=== PATIENT | male | born 1940 | race Caucasian/White ===

== ENCOUNTER 2017-12-13 05:32 | Inpatient (IN) | payer OTHER ==
[2017-12-13] MEDS ORDERED: morphINE PF 0.2 MG in SYRINGE INTRATHECAL 1 SYR IT ONE (06:00)
[2017-12-13] MEDS ORDERED: fentaNYL 50 MCG in SYRINGE INTRATHECAL 1 SYR IT ONE (06:00)
[2017-12-13] MEDS ORDERED: TRANEXAMIC ACID 1,000 MG in NS 100 ML IV ONE (06:00)
[2017-12-13] MEDS ORDERED: GABAPENTIN 300 MG CAP PO ONE (06:02)
[2017-12-13] MEDS ORDERED: ACETAMINOPHEN 500 MG TAB PO ONE (06:02)
[2017-12-13] MEDS ORDERED: ceFAZolin 2 GM/DEXTROSE 100 ML IV ONE (06:02)
[2017-12-13] MEDS ORDERED: LR 1,000 ML IV ONE (06:03)
[2017-12-13] MEDS ORDERED: LIDOCAINE 1% 2 ML INJ ID PRN (06:03)
[2017-12-13] MEDS ORDERED: THROMBIN (BOVINE) 5,000 UNIT VIAL TP ONE (06:50)
[2017-12-13] MEDS ORDERED: BUPIVACAINE 0.25% 30 ML SDV ONE (06:50)
[2017-12-13] MEDS ORDERED: CHLORHEXIDINE GLUC HIBICLENS 118 ML BTL TP ONE (06:50)
[2017-12-13] MEDS ORDERED: BACITRACIN 50,000 UNITS/10 ML SYR IRR ONE ×3 (06:51→12:54)
[2017-12-13] MEDS ORDERED: CITRATE DEXTROSE SOLN 500 ML BAG ONE ×3 (06:51→14:04)
[2017-12-13] MEDS ORDERED: EPINEPHrine 1 MG/ML INJ ONE (06:51)
--- NOTE | 2017-12-13 06:51 | PDHPUP ---
History & Physical Update H&P update statement: This history and physical update is based on an assessment of the patient which was completed after admission or registration (within 24 hours), but prior to the surgery/procedure. H&P update: no change in patient's condition since H&P completed
--- NOTE | 2017-12-13 07:04 | PDANEPAE ---
ANE History of Present Illness Patient presents for extensive back fusion ANE Past Medical History - Cardiovascular History Hx Hypertension: Yes Hx Arrhythmias: No Hx Chest Pain: No Hx Coronary Artery / Peripheral Vascular Disease: Yes Hx CHF / Valvular Disease: No Hx Palpitations: No Cardiovascular History Comment: CAD 3 stents placed 2002,recheck 2007 - Pulmonary History Hx COPD: No Hx Asthma/Reactive Airway Disease: No Hx Recent Upper Respiratory Infection: No Hx Oxygen in Use at Home: No Hx Sleep Apnea: Yes Sleep Apnea Screening Result - Last Documented: Positive - Neurologic History Hx Cerebrovascular Accident: No Hx Seizures: No Hx Dementia: No - Endocrine History Hx Diabetes: No - Renal History Hx Renal Disorders: No - Liver History Hx Hepatic Disorders: No - Neurological & Psychiatric Hx Hx Neurological and Psychiatric Disorders: Yes Neurological / Psychiatric History Comment: depression - Cancer History Hx Cancer: No - Congenital Disorder History Hx Congenital Disorders: Yes Congenital History Comment: heart disease. strokes - GI History Hx Gastrointestinal Disorders: No - Other Health History Other Health History: Hx DVT'S and PE's - Chronic Pain History Chronic Pain: No - Surgical History Prior Surgeries: 2016 lumbar fusion at [facility]. 2014 discectomy at [facility]. 2014 laminectomy post fusion [facility] ANE Review of Systems Review of Systems: - Exercise capacity METS (RN): 4 METS ANE Patient History - Allergies Allergies/Adverse Reactions: oxycodone Allergy (Verified 11/29/17 11:35) Other-Enter Comments - Home Medications Home medications: home medication list seen and reviewed Home Medications: Alendronate Sodium [Fosamax 70 MG (*)] 70 mg PO TH@0700 11/23/17 [Last Taken ] Calcium Carb W/Vit D [Calcium Carb W/Vit D 500/200 (*)] 3 each PO DAILY [Last Taken 12/06/17] Cholecalciferol Vit D3 [Vitamin D3 2000 units tab (OTC)] 4,000 units PO HS 11/23 [Last Taken 12/06/17] Cyanocobalamin [Vitamin B12 (*)] 1,000 mcg PO BID 11/23/17 [Last Taken 12/06/17] Cyclobenzaprine [Flexeril 10 MG (*)] 10 mg PO HS 11/23/17 [Last Taken 12/12/17 21:30] Docusate Sodium [Colace 100 MG (*)] 100 mg PO BID 11/23/17 [Last Taken 12/11/17] Ezetimibe/Simvastatin [Vytorin 10-20 mg Tablet] 1 each PO HS 11/23/17 [Last Taken 12/12/17 17:30] Finasteride [Proscar 5 MG (*)] 5 mg PO HS 11/23/17 [Last Taken 12/12/17 21:30] Folic Acid [Folic Acid 1 MG (*)] 1 mg PO DAILY 11/23/17 [Last Taken 12/06/17] Herbals/Supplements -Info Only 1 ea PO DAILY 11/23/17 [Last Taken 12/06/17] Magnesium Oxide [Magnesium Oxide 400 mg (*)] 400 mg PO HS 11/23/17 [Last Taken 12/06/17] Pyridoxine HCl [Vitamin B-6 100 mg (*)] 100 mg PO DAILY 11/23/17 [Last Taken ] Sennosides/Docusate Sodium [Senna-S Tablet] 1 each PO BID 11/23/17 [Last Taken 12/11/17] Tamsulosin HCl [Flomax 0.4 MG (*)] 0.4 mg PO HS 11/23/17 [Last Taken 12/12/17 21 :30] Terazosin HCl [Hytrin 5 MG (*)] 5 mg PO HS 11/23/17 [Last Taken 12/12/17 17:30] amLODIPine BESYLATE [Norvasc 5 mg (*)] 5 mg PO HS 11/23/17 [Last Taken 12/12/17 17:30] traMADol [Ultram 50 mg (*)] 50 mg PO HS PRN 11/23/17 [Last Taken 11/16/17] Aspirin [Aspirin 81mg (*)] 81 mg PO HS 11/25/17 [Last Taken 12/06/17] Multivitamins [Multivitamin (*)] 1 each PO HS 11/25/17 [Last Taken 12/06/17] Frost-3 Fatty Acids [Fish Oil 1000 mg (*)] 1,000 mg PO BID 11/25/17 [Last Taken 12/06/17] Sertraline HCl [Zoloft 100mg (*)] 100 mg PO HS 11/25/17 [Last Taken 12/12/17 17: 30] - NPO status NPO Status: no food or drink >8 hours NPO Since - Liquids (Date): 12/13/17 NPO Since - Liquids (Time): 04:30 NPO Since - Solids (Date): 12/12/17 NPO Since - Solids (Time): 21:30 - Smoking Hx Smoking Status: Former smoker - Family Anes Hx Family Hx Anesthesia Complications: none ANE Labs/Vital Signs - Vital Signs Height: 187.96 cm Weight: 88.904 kg ANE Physical Exam - Airway Neck exam: decreased ROM Mallampati Score: Class 2 Mouth exam: small mouth opening - Pulmonary Pulmonary: no respiratory distress - Cardiovascular Cardiovascular: regular rate and rhythym - ASA Status ASA Status: III ANE Anesthesia Plan Anesthesia Plan: general endotracheal anesthesia Lines/Monitors: arterial line Specialized Airway: video laryngoscope (RBA discussed, consented for blood as necessary)
[2017-12-13] MEDS ORDERED: PROPOFOL 200 MG/20 ML VIAL ONE (07:09)
[2017-12-13] MEDS ORDERED: REMIFENTANIL HCL 1 MG VIAL ONE ×2 (07:09)
[2017-12-13] MEDS ORDERED: fentaNYL 100 MCG/2 ML INJ ONE ×2 (07:09→14:09)
[2017-12-13] MEDS ORDERED: PROPOFOL/EMULSION 500 MG/50 ML BOTTLE IV ONE ×3 (07:10→11:34)
[2017-12-13] MEDS ORDERED: LIDOCAINE 2% 2 ML INJ ONE (07:19)
[2017-12-13] MEDS ORDERED: ROCURONIUM 50 MG/5 ML VIAL ONE (07:19)
[2017-12-13] MEDS ORDERED: SUCCINYLCHOLINE CHLORIDE 200 MG/10 ML SYR IVP ONE (07:37)
[2017-12-13] MEDS ORDERED: ATROPINE SULFATE 1 MG/ML VIAL ONE (07:43)
[2017-12-13] MEDS ORDERED: DEXAMETHASONE 4 MG/ML VIAL ONE (08:09)
[2017-12-13] MEDS ORDERED: ONDANSETRON 4 MG/2 ML VIAL ONE (08:09)
[2017-12-13] MEDS ORDERED: GLYCOPYRROLATE 0.2 MG/1 ML VIAL ONE ×2 (08:22→09:44)
[2017-12-13] MEDS ORDERED: ePHEDrine SULFATE 25 MG/5 ML SYR ONE (09:45)
[2017-12-13] MEDS ORDERED: ceFAZolin 1 GM VIAL ONE ×2 (10:53→14:11)
[2017-12-13] MEDS ORDERED: *INTRAOP 1000MG*TRANEX ACID/NS 100 ML IV ONE (11:30)
[2017-12-13] MEDS ORDERED: HYDROmorphONE/DILAUDID 2 MG/ML INJ ONE (13:41)
[2017-12-13] MEDS ORDERED: morphINE PF 5 MG/10 ML INJ ONE (14:09)
[2017-12-13] MEDS ORDERED: HYDROmorphONE/DILAUDID 1 MG/ML INJ IVP PRN (14:35)
[2017-12-13] MEDS ORDERED: HYDROCODONE/APAP 5/325 TAB PO PRN (14:35)
[2017-12-13] MEDS ORDERED: ONDANSETRON 4 MG/2 ML VIAL IVP PRN ×2 (14:35→15:02)
[2017-12-13] MEDS ORDERED: LR 500 ML IV PRN (14:35)
[2017-12-13] MEDS ORDERED: fentaNYL 100 MCG/2 ML INJ IVP PRN (14:35)
[2017-12-13] MEDS ORDERED: NALOXONE HCL 0.4 MG/ML INJ IVP PRN (14:35)
--- NOTE | 2017-12-13 15:01 | POSTOPPROG ---
Post Op Note Date of Operation: 12/13/17 Surgeon: Primitivo Ellis Multiple Drum Sander Helper: Bhanu Alvarado PAC Anesthesiologist: Reji Dunham Anesthesia: GET(General Endotracheal) Pre-op Diagnosis: lumbar DJD, adjacent level degeneration, loose hardware Post-op Diagnosis: Same Indication: back pain, bilateral leg weakness Procedure: L3-S1 hardware removal, L2/3,3/4 TLIF, L1-S1 instrumentation Inf/Abcess present in the surg proc area at time of surgery?: No EBL: 500-1000 Complications: none Drains: Jered Gómez (to bulb suction) Specimen(s): hardware swabbed for staph
[2017-12-13] MEDS ORDERED: LACTULOSE 20 GM/30 ML UDCUP PO PRN (15:02)
[2017-12-13] MEDS ORDERED: ONDANSETRON DISINTEGRATING 4 MG TAB PO PRN (15:02)
[2017-12-13] MEDS ORDERED: MAGNESIUM HYDROXIDE 30 ML UDCUP PO PRN (15:02)
[2017-12-13] MEDS ORDERED: diphenhydrAMINE 25 MG CAP PO PRN (15:02)
--- NOTE | 2017-12-13 15:15 | SOAPPROG ---
SOAP Progress Note Assessment/Plan: Assessment: POST OP CHECK: doing well after L1-S1 fusion with L2/3,3/4 TLIF and L3-s1 hardware removal Plan: CPM in PACU, JULIO to bulb suction Transfer to floor per protocol 12/13/17 15:13 Subjective: awake, comfortable, conversant pain controlled Objective: Vital Signs Temp Pulse Resp BP Pulse Ox 36.5 C 60 16 150/82 H 95 12/13/17 07:11 12/13/17 07:11 12/13/17 07:11 12/13/17 07:11 12/13/17 07:11 Microbiology 12/13/17 08:53 Gram Stain - Final Other - Anaerobic Tube/Swab Vitals; BP: 142/71 Hr: 86 O2: 98% facemask Neuro GREENE to command , sens +LT throughout ICD10 Worksheet Patient Problems: Problems Problem Status Onset Degenerative lumbar spinal stenosis Acute Degenerative lumbar spinal stenosis Acute Lumbar canal stenosis Acute - ICD10 Problem Qualifiers (1) Lumbar canal stenosis (2) Degenerative lumbar spinal stenosis (3) Degenerative lumbar spinal stenosis
--- NOTE | 2017-12-13 15:22 | POSTANESTH ---
Post Anesthetic Evaluation Cardiovascular Status: Similar to Pre-Op Cond Respiratory Status: Similar to Pre-op Cond. Level of Consciousness/Mental Status: Mildly Sleepy, Arousable Pain Control: Adequate, Prn Tx Ordered Nausea/Vomiting Control: Adequate, Prn Tx Ordered Complications Possibly Related to Anesthesia: None Noted
--- NOTE | 2017-12-13 16:21 | GOP ---
[f rep st] OPERATIVE REPORT DATE OF OPERATION: 12/13/2017 SURGEON: Primitivo Ellis MD NEUROSURGEON: Primitivo Ellis MD. GEOTHERMAL POWERPLANT MECHANIC: CAMELIA Starks ANESTHESIA: General endotracheal. PREOPERATIVE DIAGNOSIS: Critical L2-3 spinal stenosis and progressive lower extremity weakness, seco ndary to adjacent level degeneration, status post prior L3-S1 decompression and stabilization with in strumentation. Hardware failure with loosening of screws. 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 Intractab le back pain and bilateral lower extremity radicular and neurogenic claudication symptoms. Failed co nservative care. POSTOPERATIVE DIAGNOSIS: Critical L2-3 spinal stenosis and progressive lower extremity weakness, sec ondary to adjacent level degeneration, status post prior L3-S1 decompression and stabilization with i nstrumentation. Hardware failure with loosening of screws. 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 Intracta ble back pain and bilateral lower extremity radicular and neurogenic claudication symptoms. Failed c onservative care. PROCEDURE PERFORMED: Removal of posterior segmental (pedicle screw) fixation from L3-S1, with explor ation of spinal fusion and identification of the L3-4 nonunion/pseudoarthrosis. Bilateral transpedic ular decompression at the L2-3 level with a redo posterior hemilaminectomy and foraminotomy bilateral ly at the L3-4 level. L1-S1 posterior segmental (pedicle screw and axle device) fixation and postero lateral fusion with local autograft, bone morphogenic protein, and morselized allograft. L2-3 and L3 -4 posterior/transforaminal lumbar interbody fusion with 2 structural PEEK interbody spacers, local a utograft and bone morphogenic protein. Repair of cerebrospinal fluid leak requiring extension of the laminectomy defect. Use of intraoperative microscopy, fluoroscopy, and computer volumetric stereota ctic navigation with intraoperative neurophysiologic testing. Injection of intrathecal narcotic anal gesics and subcutaneous and intramuscular local anesthesia for postoperative pain control. FINDINGS: ESTIMATED BLOOD LOSS: 900 cc. INDICATIONS: The patient is a 77-year-old man with intractable low back pain and bilateral lower ext remity radicular and neurogenic claudication symptoms. He has had progressive weakness in his lower extremities to the point of needing a walker to get around. He has critical stenosis at the L2, 3 le joshua after a prior L3 to S1 fusion with instrumentation with clearly loosened and a possible nonunion. The patient presents now for surgical decompression and stabilization, removal and replacement of h ardware, and exploration of spinal fusion. DESCRIPTION OF PROCEDURE: After informed consent was obtained, the patient was taken to the operatin g room and placed in a prone position on the Jered table. The thoracolumbosacral areas were preppe d and draped in a sterile fashion. After fluoroscopic localization of the correct levels, the subcut aneous and intramuscular tissues were infiltrated with local anesthesia. A midline linear incision was then created from approximately L1 through S1. This was carried down t o the fascial layer, which was incised using monopolar electrocautery, and carried in the subfascial plane along the spinous processes and lamina bilaterally. Intraoperative fluoroscopy was again used to verify the correct levels. Following this, the dissection was carried out over the over the facet joints. The prior hardware wa s then carefully removed in the standard fashion. The L3 screws bilaterally were extremely loose and when they came out, there did appear to be a very slight amount of clear fluid welling up in the dave or pedicle screw hole at the L3 level. This was examined very closely and a redo posterior hemilamin ectomy was performed bilaterally at L3-4 with a new L2-3 far lateral transpedicular decompression und er high-power microscopy. A small hole in the dura was noted along the inside of the left L3 pedicle screw, which appeared to be from erosion. Noted preoperatively, there is significant cortical breac h in a lot of the screws, especially L5, and after removing all of the screws and inspecting everythi ng, the only dural defect was medial to the L3 pedicle screw on the left. The microscope was then brought in and a meticulous dissection ensued at L2-3 and L3-4 with bilateral transpedicular decompressions. The facet joints were completely and unroofed at the L2 level and an extensive amount of scar tissue was encountered, but very carefully dissected out. There was very c ritical stenosis that was thoroughly decompressed throughout the L2 and L3 foramen and the central ca nal. Following this, the Secerno neuronavigational system was worried and pedicle screws were placed at L1 and L2 bilaterally, as well as L4 and S1 bilaterally. Each individual screw was tested neurophysiol ogically with monopolar electrostimulation and interpretation of the potentials by the surgeon. I di d not feel that it was in the best interest of the patient to place screws at L5 given the significan t cortical breach. I tried placing larger screws at L3, but the holes were to big screws eroding int o the bone. Short rods were then placed spanning the L2-L4 levels and a slight amount of distraction was created across the L2-3 and L3-4 interspaces. The L3-4 level had a definite pseudoarthrosis, so that complet e diskectomies were performed at L2-3 and L3-4 with preparation of the endplates and placement of 2 s tructural PEEK interbody spacers, local autograft, and bone morphogenic protein for L2-3 and L3-4 pos terior/transforaminal lumbar interbody fusions. The shorter rods were then removed and longer rods w ith maximal lordosis were placed from L1-S1 and the rods and screws carefully secured under compressi on to facilitate bony union and to minimize the potential for posterior graft migration. After verifying good positioning of the screws, rods, and interbody spacers, 200 mcg of Duramorph, al bryanna with 50 mcg of fentanyl were injected intrathecally. Following this, an axial device was placed at the L1-2 level in order to avoid a junctional kyphosis and further hardware failure as he is very high risk given the prior failure and the multitude of back surgeries he has had. The remaining lami na and transverse processes were then extensively decorticated from L1-S1, and the residual local aut ograft along with bone morphogenic protein and morselized autograft was placed out laterally for an L 1-S1 posterolateral fusion. A drain was then placed, and while this was happening, I inspected the m edial border of the L3 pedicle screw (where it had been) and placed a piece of DuraGen over the small hole that could not be repaired with a stitch. Gelfoam was then placed over this. The wound was th en closed in a layered fashion using interrupted Vicryl sutures, followed by Steri-Strips on the skin . COMPLICATIONS: None. DISPOSITION: The patient was extubated and transferred to the recovery room in stable condition. /[id number]/MODL
[2017-12-13] MEDS: ceFAZolin 2 GM/DEXTROSE 100 ML IV SCH (17:51)
[2017-12-13] MEDS: POLYETHYLENE GLYCOL 3350 17 GM PKT PO SCH ×2 (17:51→21:40)
[2017-12-13] MEDS: ACETAMINOPHEN 500 MG TAB PO SCH (21:40)
[2017-12-13] MEDS: TERAZOSIN HCL 5 MG CAP PO SCH (21:41)
[2017-12-13] MEDS: morphINE SR 15 MG TAB PO SCH (21:41)
[2017-12-13] MEDS: CYANO/VITAMIN B12 1000 MCG TAB PO SCH (21:41)
[2017-12-13] MEDS: amLODIPine BESYLATE 5 MG TAB PO SCH (21:42)
[2017-12-13] MEDS: GABAPENTIN 300 MG CAP PO SCH (21:42)
[2017-12-13] MEDS: TAMSULOSIN HCL 0.4 MG CAP PO SCH (21:43)
[2017-12-13] MEDS: ATORVASTATIN CALCIUM 10 MG TAB PO SCH (21:43)
[2017-12-13] MEDS: SERTRALINE HCL 100 MG TAB PO SCH (21:43)
[2017-12-13] MEDS: MAGNESIUM OXIDE 400 MG TAB PO SCH (21:43)
[2017-12-13] MEDS: FAMOTIDINE 20 MG TAB PO SCH (21:44)
[2017-12-13] MEDS: SENNOSIDES/DOCUSATE SODIUM TAB PO SCH (21:44)
[2017-12-13] MEDS: EZETIMIBE 10 MG TAB PO SCH (21:54)
[2017-12-14] MEDS: ceFAZolin 2 GM/DEXTROSE 100 ML IV SCH (00:45)
[2017-12-14 05:34] LABS: PLATELET COUNT 175 10^3/uL (150-400)
[2017-12-14] MEDS: ACETAMINOPHEN 500 MG TAB PO SCH ×3 (05:54→22:06)
[2017-12-14] MEDS: GABAPENTIN 300 MG CAP PO SCH ×3 (05:54→22:04)
--- NOTE | 2017-12-14 07:51 | SOAPPROG ---
SOAP Progress Note Assessment/Plan: Assessment: POD #1 L1-S1 fusion with L2/3,3/4 TLIF and L3-s1 hardware removal HOB flat until AM New right iliopsoas weakness Plan: Lovenox starts today JULIO to thumbprint suction HOB flat until Tuesday at 0600 Follow right iliopsoas weakness D/W Dr. Skinner 12/14/17 07:50 Subjective: lying in bed, comfortable. Pain well controlled HOB flat - patient is tolerating. Objective: Vital Signs Temp Pulse Resp BP Pulse Ox 36.7 C 62 16 95/52 L 94 12/14/17 04:00 12/14/17 04:00 12/14/17 04:00 12/14/17 04:00 12/14/17 04:00 Microbiology 12/13/17 08:53 Gram Stain - Final Other - Anaerobic Tube/Swab Laboratory Results 12/14/17 04:48 12/14/17 04:48 12/13/17 12/14/17 12/15/17 05:59 05:59 05:59 Intake Total 3070 Output Total 3610 Balance -540 Neuro: RIght iliopsoas 3/5 chronic right PF/DF/EHL weakness sens +LT throughout Dressing: CDI JULIO: 160ml ICD10 Worksheet Patient Problems: Problems Problem Status Onset Degenerative lumbar spinal stenosis Acute Degenerative lumbar spinal stenosis Acute Lumbar canal stenosis Acute - ICD10 Problem Qualifiers (1) Lumbar canal stenosis (2) Degenerative lumbar spinal stenosis (3) Degenerative lumbar spinal stenosis
[2017-12-14] MEDS: FOLIC ACID 1 MG TAB PO SCH (08:30)
[2017-12-14] MEDS: PYRIDOXINE HCL 100 MG TAB PO SCH (08:31)
[2017-12-14] MEDS: FAMOTIDINE 20 MG TAB PO SCH ×2 (08:32→22:05)
[2017-12-14] MEDS: morphINE SR 15 MG TAB PO SCH ×2 (08:32→22:06)
[2017-12-14] MEDS: POLYETHYLENE GLYCOL 3350 17 GM PKT PO SCH ×3 (08:32→22:03)
[2017-12-14] MEDS: SENNOSIDES/DOCUSATE SODIUM TAB PO SCH ×2 (08:32→22:04)
[2017-12-14] MEDS: CYANO/VITAMIN B12 1000 MCG TAB PO SCH ×2 (08:32→22:05)
[2017-12-14] MEDS: CALCIUM CARB W/VIT D 500 MG TAB PO SCH (08:33)
[2017-12-14] MEDS ORDERED: ENOXAPARIN 40 MG/0.4 ML SYR SC SCH (09:00)
--- NOTE | 2017-12-14 10:30 | PDMN ---
Medical Necessity Medical necessity: [facility] IP only surgery; cpt 48610 Removal of Posterior Instrumentation, 05005 Lumbar Fusion (L2/3 TLIF, L1/S1 Lum Tyler w/Hardware Removal)
--- NOTE | 2017-12-14 16:13 | ASMTCMCOM ---
CM Note CM Note Notes: S/P Fusion, TLIF - Patient's needs remain unclear at this time, await therapy input on . CM will continue to follow. Plan: TBD Date Signed: 12/14/2017 04:12 PM Electronically Signed By:Kourtney Kovacs RN
--- NOTE | 2017-12-14 17:22 | GCON ---
[f rep st] CONSULTATION HISTORY OF PRESENT ILLNESS: The patient is a 77-year-old gentleman with a history of coronary artery disease with remote stents, as well as remote DVT, who is postop day 1 status post lumbar spine surg deysi. When I speak to the patient, he is lying flat because of a potential dural tear and he is witho ut complaints. He is oxygen, which he does not wear at home, but he is having no shortness of breath . He is using an incentive spirometer. He does not have fever, chills, cough, sputum, nausea, vomit ing, diarrhea. He has had no recent anginal symptoms, nor has he had heart failure symptoms. REVIEW OF SYSTEMS: Complete 10-point review of systems conducted negative, except as noted in the HP I. PAST MEDICAL HISTORY: 1. Coronary artery disease with stents in 2002 because of a failed stress test. 2. DVT following an orthopedic surgery. It sounds like it was upper extremity. 3. BPH. 4. Hypertension. ALLERGIES: Oxycodone. HOME MEDICATIONS: Aspirin, cyclobenzaprine, docusate, multivitamin, fish oil, senna, tramadol, alend ronate, amlodipine, calcium carbonate, vitamin D, vitamin B12, ezetimibe, simvastatin, finasteride, f olic acid, pyridoxine, tamsulosin, terazosin. SOCIAL HISTORY: Quit smoking a long time ago. Rare alcohol. FAMILY HISTORY: Daughter at the bedside and healthy. PHYSICAL EXAMINATION: VITAL SIGNS: Temp 36.5, blood pressure 95/52, pulse 55, breathing 19 times a minute, 91% on 1 L. GENERAL: In no acute distress. HEENT: Sclerae anicteric. Oropharynx clear. Mucous membranes moist. NECK: Supple without lymphadenopathy or JVD. LUNGS: Clear to auscultation bilaterally heart is S1, S2. ABDOMEN: Soft, nontender, nondistended. LOWER EXTREMITIES: No edema . Calves nontender. SKIN: Without rash. NEUROLOGIC: Exam is nonfocal. LABORATORY DATA: White count 7, hematocrit 28, platelets are 175. Sodium 141, potassium 4.5, chlori de 112, bicarb 25, BUN 16, creatinine 1.4 with unknown baseline, glucose 92, calcium 7.6. I discussed case with Neurosurgery PA. ASSESSMENT/PLAN: A 77-year-old gentleman postop day 1 from Neurosurgery. 1. Coronary artery disease. Would restart aspirin as soon as you are comfortable as stents were rem ote. 2. History of deep venous thrombosis. Agree with enoxaparin as you have provided. 3. Elevated creatinine. The patient has an unknown baseline. His low BUN suggests that he was euvo lemic at the time. I will repeat a value in the morning. 4. Anemia. I suspect this is acute blood loss. We recommend following if he becomes weak. 5. Pain, currently well controlled. Thank you for this consultation. [facility] will follow with you. /[id number]/MODL
[2017-12-14] MEDS ORDERED: CHOLECALCIFEROL VIT D3 2,000 UNITS TAB/CAP PO SCH (21:00)
[2017-12-14] MEDS: EZETIMIBE 10 MG TAB PO SCH (22:03)
[2017-12-14] MEDS: TERAZOSIN HCL 5 MG CAP PO SCH (22:03)
[2017-12-14] MEDS: FINASTERIDE 5 MG TAB PO SCH (22:04)
[2017-12-14] MEDS: MAGNESIUM OXIDE 400 MG TAB PO SCH (22:04)
[2017-12-14] MEDS: ATORVASTATIN CALCIUM 10 MG TAB PO SCH (22:05)
[2017-12-14] MEDS: SERTRALINE HCL 100 MG TAB PO SCH (22:05)
[2017-12-14] MEDS: TAMSULOSIN HCL 0.4 MG CAP PO SCH (22:05)
[2017-12-14] MEDS: amLODIPine BESYLATE 5 MG TAB PO SCH (22:08)
[2017-12-15] MEDS ORDERED: IOPAMIDOL (ISOVUE 370) 100 ML BTL IV ONE (05:11)
--- NOTE | 2017-12-15 06:47 | HOSPPROG ---
Hospitalist Progress Note Assessment/Plan: XC: Called by RN regarding results of CTA ordered due to SOB. CTA revealed PE and developing aspiration pneumonia in the setting likely post-op ileus. The patient himself is only mildly symptomatic without acute respiratory distress. He has been lying flat due to a dural tear, which I feel is responsible for some of his symptoms since he has mild/mod pleural effusions and now aspiration as well. Speaking with patient he has a prior history of PE 2 years ago after surgery. He was on warfarin for 1 year after this. I spoke with NSG NABOR Alvarado; they are ok with starting heparin gtt without a bolus. Also, I will dose Unasyn to prevent development of worsening pneumonia and per NSG it is ok to elevate head of bed to 30 degrees. Will defer NGT unless symptoms of ileus worsen. Will also check CBC and coags. Objective: Vital Signs Temp Pulse Resp BP Pulse Ox 37.2 C 87 18 146/62 H 89 L 12/15/17 04:00 12/15/17 04:00 12/15/17 04:00 12/15/17 04:00 12/15/17 04:00 Microbiology 12/13/17 08:53 Gram Stain - Final Other - Anaerobic Tube/Swab Laboratory Results 12/14/17 04:48 12/15/17 05:04 12/14/17 12/15/17 12/16/17 05:59 05:59 05:59 Intake Total 3070 1000 Output Total 3610 3060 Balance -540 -2065 ICD10 Worksheet Patient Problems: Problems Problem Status Onset Degenerative lumbar spinal stenosis Acute Degenerative lumbar spinal stenosis Acute Lumbar canal stenosis Acute
[2017-12-15] MEDS ORDERED: ALENDRONATE SODIUM 70 MG TAB PO SCH (07:00)
[2017-12-15] MEDS: GABAPENTIN 300 MG CAP PO SCH ×3 (07:15→21:42)
[2017-12-15] MEDS: ACETAMINOPHEN 500 MG TAB PO SCH ×3 (07:15→21:42)
[2017-12-15 07:19] LABS: INR 1.16 (0.83-1.16)
[2017-12-15] MEDS: AMPICILLIN/SULBACTAM 3 GM in NS 100 ML IV SCH ×3 (07:35→17:39)
--- NOTE | 2017-12-15 07:37 | SOAPPROG ---
SOAP Progress Note Assessment/Plan: Assessment: 77 yo M POD #2 L1-S1 fusion with L2-4 TLIF with csf leak from previously placed screw Plan: neuro: slowly advance HOB level this am, will watch for headaches and drainage from incision PE: started on heparin drip with no bolus, appreciate help from Hospitalists Pneumonia: on Unasyn, appreciate help from Hospitalists PT/OT scd/zac for dvt prophylaxis ileus: watch for now, consider NG tube if symptoms worsen JULIO x 1, will keep for now please call with neuro changes discussed with Dr Skinner 12/15/17 07:33 Subjective: shortness of breath last night, patient feels that he can't fully get a deep breath mild back pain, no leg pain. No chest pain Objective: Vital Signs Temp Pulse Resp BP Pulse Ox 37.2 C 87 18 146/62 H 89 L 12/15/17 04:00 12/15/17 04:00 12/15/17 04:00 12/15/17 04:00 12/15/17 04:00 Microbiology 12/13/17 08:53 Gram Stain - Final Other - Anaerobic Tube/Swab Laboratory Results 12/15/17 06:50 12/15/17 05:04 12/14/17 12/15/17 12/16/17 05:59 05:59 05:59 Intake Total 3070 1000 Output Total 3610 3065 Balance -540 -2065 PT 15.0 SEC (12.0-15.0) 12/15/17 06:50 INR 1.16 (0.83-1.16) 12/15/17 06:50 AAOx4, +FC PERRL, EOMI, no facial droop 5/5 except right DF 0/5 (chronic) + light touch some drainage on incision ICD10 Worksheet Patient Problems: Problems Problem Status Onset Degenerative lumbar spinal stenosis Acute Degenerative lumbar spinal stenosis Acute Lumbar canal stenosis Acute
[2017-12-15] MEDS: HEPARIN/DEXTROSE 500 ML IV SCH ×2 (08:27→23:45)
[2017-12-15] MEDS: POLYETHYLENE GLYCOL 3350 17 GM PKT PO SCH ×3 (09:41→21:42)
[2017-12-15] MEDS: CALCIUM CARB W/VIT D 500 MG TAB PO SCH (09:41)
[2017-12-15] MEDS: FOLIC ACID 1 MG TAB PO SCH (09:42)
[2017-12-15] MEDS: FAMOTIDINE 20 MG TAB PO SCH (09:42)
[2017-12-15] MEDS: PYRIDOXINE HCL 100 MG TAB PO SCH (09:42)
[2017-12-15] MEDS: CYANO/VITAMIN B12 1000 MCG TAB PO SCH (09:42)
[2017-12-15] MEDS: SENNOSIDES/DOCUSATE SODIUM TAB PO SCH ×2 (09:42→21:41)
[2017-12-15] MEDS ORDERED: NS 500 ML IV ONE (10:30)
[2017-12-15] MEDS: morphINE SR 15 MG TAB PO SCH (11:14)
--- NOTE | 2017-12-15 11:26 | HOSPPROG ---
Hospitalist Progress Note Assessment/Plan: [facility] Patient Name: SILVERIO DORSEY Rpt#: [id number] Unit Number: [id number] Attending/ER Physician: MARY MARTIN Patient Type: ADM IN Adm Date/Source: 12/13/17 PHY Discharge Date: Primary Carrier: MEDICARE INPATIENT Silverio is a a 77-year-old gentleman with a history of coronary artery disease, hx of DVT and PE. He is s/p L1-s1 fusion w L2-4 TLIF with a CSF leak from previously placed screw. Today is my first encounter w the patient, chart reviewed. Reviewed his care w Dr Gr, who started the patient on a heparin gtt for a right sided PE and Unasyn out of concern for a possible developing pna. *Hypotension -normal saline *PE -heparin gtt -hx of a PE 2 years ago after surgery, also a dvt -will get an echo now to evaluate right heart strain since he is hypotensive *dural tear s/p lumbar surgery -bedrest *post op ileus -abdomen severely distended -will place NG *concern for aspiration pneumonia -started on Unasyn *elevated creat -this has trended up -has had multiple hypotensive episodes and may have some ATN -will follow -avoid any nephrotoxic agents (dc celebrex, decrease dose of pepcid) *pain due to recent surgery -dc long acting morphine -has done well in the past w only tramadol *plan: placement of NG tube to decompress, if bp doesn't improve, consider tx to step down, check a stat H an H to assure stability, echo Subjective: Silverio has no back pain and is tired but has no specific other complaints. Objective: Vital Signs Temp Pulse Resp BP Pulse Ox 37.7 C 68 18 101/52 L 92 12/15/17 07:40 12/15/17 07:40 12/15/17 07:40 12/15/17 07:40 12/15/17 07:40 Microbiology 12/13/17 08:53 Gram Stain - Final Other - Anaerobic Tube/Swab Laboratory Results 12/15/17 06:50 12/15/17 05:04 12/14/17 12/15/17 12/16/17 05:59 05:59 05:59 Intake Total 3070 1000 Output Total 3610 3065 60 Balance -540 -2065 -60 PT 15.0 SEC (12.0-15.0) 12/15/17 06:50 INR 1.16 (0.83-1.16) 12/15/17 06:50 - Physical Exam Constitutional: appears nourished, not in pain, chronically ill appearing Eyes: PERRL Ears, Nose, Mouth, Throat: hearing normal Cardiovascular: regular rate and rhythym Respiratory: no respiratory distress, reduced air movement Gastrointestinal: distension, No normoactive bowel sounds (hypoactive) Skin: warm, No normal color (pale) Neurologic: AAOx3 Psychiatric: interacting appropriately, not anxious, not encephalopathic ICD10 Worksheet Patient Problems: Problems Problem Status Onset Degenerative lumbar spinal stenosis Acute Degenerative lumbar spinal stenosis Acute Lumbar canal stenosis Acute
[2017-12-15] MEDS ORDERED: traMADol 50 MG TAB PO PRN (12:30)
--- NOTE | 2017-12-15 13:44 | ASMTCMCOM ---
CM Note CM Note Notes: Patient is POD #2 L1-S2 fusion and L2-4 TLIF w CSF leak. He also has a post-operative ileus, which required NG tube placement today. I spoke with patients and son today about SNF. They agree with this plan. They're not sure on a facility, so we discussed options. I gave them a Senior Blue Book and mentioned a few facilities in [place], as well. They live in [place] but are not interested in any of the SNF in [place]. Referrals sent to [facility], [facility], [facility], [facility], [facility], and [facility]. Case Management will follow. Date Signed: 12/15/2017 01:43 PM Electronically Signed By:Lamar Hernandez RN
[2017-12-15] MEDS ORDERED: NS 250 ML IV ONE (16:02)
[2017-12-15] MEDS ORDERED: ACETAMINOPHEN 650 MG SUPP PR PRN (16:23)
--- NOTE | 2017-12-15 17:20 | ECHO ---
[email or web address] [address] Main: [phone] Fax: [email or web address] Echocardiogram Name: EDI DORSEY MR#: [id number] Study Date: 12/15/2017 Study Time: 11:48 AM Date of : 1940 Age: 77 year(s) Height: 188 cm (74 in.) Weight: 88.91 kg (196 lb.) BSA: 2.15 m2 Gender: Male Examination: Echo Indication: Acutel pulmonary infarct, acute hypotension, eval Rt heart, Hx Stents Image Quality: Contrast: Requested by: Nunu Storey BP: 91 mmHg/44 mmHg Heart Rate: Rhythm: Normal sinus rhythm Indication: Acutel pulmonary infarct, acute hypotension, eval Rt heart, Hx Stents Procedure Staff Quality Rn: Reji Avendaño RDCS Reading Physician: Timoteo Lipscomb MD Requesting Provider: Conclusions: Normal size left ventricle. No LV hypertrophy. Normal global systolic LV function. EF is 68 %. Diastolic dysfunction is present. . Normal size right ventricle. The mitral valve is normal in appearance and function. The aortic valve is normal in appearance and function. Trivial tricuspid valve regurgitation. The pulmonic valve is normal in appearance and function. Measurements: Chambers Valvular Assessment AV/MV Valvular Assessment TV/PV Normal Normal Normal Name Value Range Name Value Range Name Value Range Ao Janice (MM): 4.2 cm (2.2 cm-3.7 AV Vmax: 1.29 m/s (1 m/s-1.7 TR Vmax: 2.86 mm/s ( - ) cm) m/s) TR PGmax: 33 mmHg ( - ) IVSd (2D): 1.1 cm (0.6 cm-1.1 AV maxP mmHg ( - ) syst. PAP: 38 mmHg ( - ) cm) LVOT Vmax: 0.88 m/s (0.7 m/s-1.1 LVDd (2D): 4.4 cm (4.2 cm-5.9 m/s) cm) MV E Vmax: 0.63 m/s ( - ) LVDs (2D): 2.7 cm (2.1 cm-4 MV A Vmax: 0.70 m/s ( - ) cm) MV E/A: 0.90 ( - ) LVPWd (2D): 1.2 cm (0.6 cm-1 cm) LVEF (2D): 68 (>=54 %) Continued Measurements: Chambers Valvular Assessment AV/MV Valvular Assessment TV/PV Patient: EDI DORSEY Study Date: 12/15/2017 Page 1 of 2 11:48 AM Name Value Name Value Name Value LADs Lon.5 cm MV E/E' Lateral: 10.80 CVP (est.): 5 mmHg LA Area: 18.9 cm2 Findings: Left Ventricle: Normal size left ventricle. No LV hypertrophy. Normal global systolic LV function. EF is 68 %. No regional wall motion abnormality. Diastolic dysfunction is present. . Right Ventricle: Normal size right ventricle. Normal RV function. Left Atrium: The left atrium is normal in size. Right Atrium: The right atrium is normal in size. Mitral Valve: The mitral valve is normal in appearance and function. Trivial mitral valve regurgitation. Aortic Valve: The aortic valve is normal in appearance and function. No aortic valve stenosis is present. Tricuspid Valve: The tricuspid valve appears normal. Trivial tricuspid valve regurgitation. Pulmonic Valve: The pulmonic valve is normal in appearance and function. Aorta: The aorta is normal. Pericardium: No pericardial effusion. (No Signature Object) Patient: EDI DORSEY Study Date: 12/15/2017 Page 2 of 2 11:48 AM [id number]
[2017-12-15] MEDS: NS 1,000 ML IV SCH (20:32)
[2017-12-15] MEDS: amLODIPine BESYLATE 5 MG TAB PO SCH (21:39)
[2017-12-15] MEDS: EZETIMIBE 10 MG TAB PO SCH (21:41)
[2017-12-15] MEDS: FINASTERIDE 5 MG TAB PO SCH (21:41)
[2017-12-15] MEDS: ATORVASTATIN CALCIUM 10 MG TAB PO SCH (21:41)
[2017-12-15] MEDS: SERTRALINE HCL 100 MG TAB PO SCH (21:41)
[2017-12-15] MEDS: MAGNESIUM OXIDE 400 MG TAB PO SCH (21:41)
[2017-12-15] MEDS: TERAZOSIN HCL 5 MG CAP PO SCH (21:42)
[2017-12-16] MEDS: AMPICILLIN/SULBACTAM 3 GM in NS 100 ML IV SCH ×4 (00:43→18:30)
[2017-12-16 04:30] LABS: PLATELET COUNT 158 10^3/uL (150-400)
[2017-12-16] MEDS: NS 1,000 ML IV SCH ×2 (05:37→15:46)
[2017-12-16] MEDS: ACETAMINOPHEN 500 MG TAB PO SCH ×3 (07:36→22:27)
[2017-12-16] MEDS: GABAPENTIN 300 MG CAP PO SCH ×3 (07:37→22:42)
--- NOTE | 2017-12-16 07:57 | SOAPPROG ---
SOAP Progress Note Assessment/Plan: Assessment: POD #3 L1-S1 fusion with L2/3,3/4 TLIF and L3-s1 hardware removal HOB up, doing well. New right iliopsoas weakness improving PE - on heparin drip Ileus -NG tube in place Plan: CPM with PT/OT as tolerated Appreciate medicine mgmt of PE and Ileus Continue JULIO drain ] needs lumbar xrays when he can tolerate them D/W Dr. Skinner 12/16/17 08:00 12/16/17 08:01 Subjective: awake, alert, comfortable. Does not report any new issues/complaints He feels his right leg is stronger today. Objective: Vital Signs Temp Pulse Resp BP Pulse Ox 37.1 C 66 18 131/65 H 94 12/16/17 07:31 12/16/17 07:31 12/16/17 07:31 12/16/17 07:31 12/16/17 07:31 Microbiology 12/13/17 08:53 Gram Stain - Final Other - Anaerobic Tube/Swab Laboratory Results 12/16/17 04:05 12/16/17 04:05 12/15/17 12/16/17 12/17/17 05:59 05:59 05:59 Intake Total 1000 2306 Output Total 3065 2160 Balance -2065 146 PT 15.0 SEC (12.0-15.0) 12/15/17 06:50 INR 1.16 (0.83-1.16) 12/15/17 06:50 Neuro: A+Ox4 follows commands chronic Right foot weakness Right iliopsoas 4-/5 JULIO: 60 ml to thumbprint suction. bloody ICD10 Worksheet Patient Problems: Problems Problem Status Onset Degenerative lumbar spinal stenosis Acute Degenerative lumbar spinal stenosis Acute Lumbar canal stenosis Acute - ICD10 Problem Qualifiers (1) Lumbar canal stenosis (2) Degenerative lumbar spinal stenosis (3) Degenerative lumbar spinal stenosis
[2017-12-16] MEDS: SENNOSIDES/DOCUSATE SODIUM TAB PO SCH ×2 (09:03→22:44)
[2017-12-16] MEDS: FAMOTIDINE 20 MG TAB PO SCH (09:03)
[2017-12-16] MEDS: POLYETHYLENE GLYCOL 3350 17 GM PKT PO SCH ×3 (09:03→22:43)
[2017-12-16] MEDS: FOLIC ACID 1 MG TAB PO SCH (09:03)
[2017-12-16] MEDS: PYRIDOXINE HCL 100 MG TAB PO SCH (09:03)
--- NOTE | 2017-12-16 09:06 | HOSPPROG ---
Hospitalist Progress Note Assessment/Plan: [facility] Patient Name: SILVERIO DORSEY Rpt#: [id number] Unit Number: [id number] Attending/ER Physician: MARY MARTIN Patient Type: ADM IN Adm Date/Source: 12/13/17 PHY Discharge Date: Primary Carrier: MEDICARE INPATIENT Silverio is a a 77-year-old gentleman with a history of coronary artery disease, hx of DVT and PE. He is s/p L1-s1 fusion w L2-4 TLIF with a CSF leak from previously placed screw. Met w the patient and his family along w Dr Skinner and with Timoteo kerr RN. *Hypotension -normal saline -resolved *PE -heparin gtt -hx of a PE 2 years ago after surgery, also a dvt -echo does not indicate any heart strain -Dr Skinner is fine to start Coumadin tomorrow *dural tear s/p lumbar surgery -resolved *post op ileus -abdomen severely distended again, getting an abd xray to evaluate placement of NG -NG placed yesterday w 700 ml output -has some bowel sounds, and passing flatus *concern for aspiration pneumonia -started on Unasyn *elevated creat secondary to hypotensive episoded -dc nephrotoxic meds, decrease dose of pepcid) -creat has trended up -cont fluids overnight *pain due to recent surgery -dc long acting morphine -has done well in the past w only tramadol -has no c/o pain *plan: Abd xray to evaluate placement of NG. Plan of care reviewed with the patient and his and son who are at the bedside. Will leave steen in overnight for close monitoring of output. Subjective: Silverio is not c/o any significant pain. Objective: Vital Signs Temp Pulse Resp BP Pulse Ox 37.1 C 66 18 131/65 H 94 12/16/17 07:31 12/16/17 07:31 12/16/17 07:31 12/16/17 07:31 12/16/17 07:31 Microbiology 12/13/17 08:53 Gram Stain - Final Other - Anaerobic Tube/Swab Laboratory Results 12/16/17 04:05 12/16/17 04:05 12/15/17 12/16/17 12/17/17 05:59 05:59 05:59 Intake Total 1000 2306 Output Total 3065 2160 Balance -2065 146 PT 15.0 SEC (12.0-15.0) 12/15/17 06:50 INR 1.16 (0.83-1.16) 12/15/17 06:50 - Physical Exam Constitutional: no apparent distress, appears nourished, not in pain, chronically ill appearing Eyes: PERRL Ears, Nose, Mouth, Throat: hearing normal Cardiovascular: regular rate and rhythym Respiratory: no respiratory distress, reduced air movement Gastrointestinal: distension, No normoactive bowel sounds (hypoactive) Genitourinary: steen in urethra Skin: warm Musculoskeletal: generalized weakness Neurologic: AAOx3 Psychiatric: interacting appropriately ICD10 Worksheet Patient Problems: Problems Problem Status Onset Degenerative lumbar spinal stenosis Acute Degenerative lumbar spinal stenosis Acute Lumbar canal stenosis Acute
--- NOTE | 2017-12-16 12:39 | ASMTCMCOM ---
CM Note CM Note Notes: Family requests referral to [facility] inpatient rehab, sent in [facility]. Date Signed: 12/16/2017 12:38 PM Electronically Signed By:IMELDA Peter
[2017-12-16] MEDS: HEPARIN/DEXTROSE 500 ML IV SCH (16:25)
[2017-12-16] MEDS: amLODIPine BESYLATE 5 MG TAB PO SCH (22:40)
[2017-12-16] MEDS: EZETIMIBE 10 MG TAB PO SCH (22:41)
[2017-12-16] MEDS: ATORVASTATIN CALCIUM 10 MG TAB PO SCH (22:41)
[2017-12-16] MEDS: FINASTERIDE 5 MG TAB PO SCH (22:42)
[2017-12-16] MEDS: MAGNESIUM OXIDE 400 MG TAB PO SCH (22:43)
[2017-12-16] MEDS: SERTRALINE HCL 100 MG TAB PO SCH (22:44)
[2017-12-16] MEDS: TERAZOSIN HCL 5 MG CAP PO SCH (22:44)
[2017-12-17] MEDS: AMPICILLIN/SULBACTAM 3 GM in NS 100 ML IV SCH ×4 (00:09→18:26)
[2017-12-17] MEDS: NS 1,000 ML IV SCH ×3 (00:09→22:33)
[2017-12-17] MEDS: GABAPENTIN 300 MG CAP PO SCH ×3 (05:35→22:39)
[2017-12-17] MEDS: ACETAMINOPHEN 500 MG TAB PO SCH ×3 (05:35→22:35)
--- NOTE | 2017-12-17 08:11 | HOSPPROG ---
Hospitalist Progress Note Assessment/Plan: [facility] Patient Name: SILVERIO DORSEY Rpt#: [id number] Unit Number: [id number] Attending/ER Physician: MARY MARTIN Patient Type: ADM IN Adm Date/Source: 12/13/17 PHY Discharge Date: Primary Carrier: MEDICARE INPATIENT Silverio is a a 77-year-old gentleman with a history of coronary artery disease, hx of DVT and PE. He is s/p L1-s1 fusion w L2-4 TLIF with a CSF leak from previously placed screw. *Hypotension -resolved *PE -heparin gtt -hx of a PE 2 years ago after surgery, also a dvt -echo does not indicate any heart strain -will need Coumadin initiated, but has a drain in *dural tear s/p lumbar surgery -resolved *post op ileus -resolving, will leave NG in for now -doing a trial of clear liquids, NG clamped *concern for aspiration pneumonia -started on Unasyn -reviewed his chest x ray and cont to have a rul infiltrate -will add duonebs -hx of smoking *elevated creat secondary to hypotensive episoded -dc nephrotoxic meds, decrease dose of pepcid) -resolved *pain due to recent surgery -minimal pain today *plan:Steen removal, cont NG placement for now, if he starts drinking more fluids, will decrease IV fluids Subjective: True is feeling better slowly, has some increase sputum. Objective: Vital Signs Temp Pulse Resp BP Pulse Ox 37.2 C 67 16 142/73 H 95 12/17/17 07:40 12/17/17 07:40 12/17/17 07:40 12/17/17 07:40 12/17/17 07:40 Microbiology 12/13/17 08:53 Gram Stain - Final Other - Anaerobic Tube/Swab Laboratory Results 12/16/17 04:05 12/17/17 04:33 12/16/17 12/17/17 12/18/17 05:59 05:59 05:59 Intake Total 2306 2362.4 Output Total 2160 3605 Balance 146 -1242.6 PT 15.0 SEC (12.0-15.0) 12/15/17 06:50 INR 1.16 (0.83-1.16) 12/15/17 06:50 - Physical Exam Constitutional: no apparent distress, chronically ill appearing Eyes: PERRL Ears, Nose, Mouth, Throat: hearing normal Cardiovascular: regular rate and rhythym Respiratory: no respiratory distress, reduced air movement, rhonchi (few on right side) Gastrointestinal: No normoactive bowel sounds (hypoactive, has less distention today and has NG clamped) Genitourinary: steen in urethra Skin: warm, No normal color (pale) Neurologic: AAOx3 Psychiatric: interacting appropriately ICD10 Worksheet Patient Problems: Problems Problem Status Onset Degenerative lumbar spinal stenosis Acute Degenerative lumbar spinal stenosis Acute Lumbar canal stenosis Acute
[2017-12-17] MEDS: FOLIC ACID 1 MG TAB PO SCH (08:14)
[2017-12-17] MEDS: METHOCARBAMOL 750 MG TAB PO PRN (08:14)
[2017-12-17] MEDS: PYRIDOXINE HCL 100 MG TAB PO SCH (08:14)
[2017-12-17] MEDS: SENNOSIDES/DOCUSATE SODIUM TAB PO SCH ×2 (08:15→22:39)
[2017-12-17] MEDS: FAMOTIDINE 20 MG TAB PO SCH (08:15)
[2017-12-17] MEDS: POLYETHYLENE GLYCOL 3350 17 GM PKT PO SCH ×3 (08:26→23:19)
--- NOTE | 2017-12-17 08:53 | SOAPPROG ---
SOAP Progress Note Assessment/Plan: Assessment: POD #4 L1-S1 fusion with L2/3,3/4 TLIF and L3-s1 hardware removal HOB up, doing well. New right iliopsoas weakness improving PE - on heparin drip Ileus -NG tube in place Plan: CPM with PT/OT as tolerated Appreciate medicine mgmt of PE and Ileus Continue JULIO drain given his heparin drip needs lumbar xrays when he can tolerate them dressing change 12/17/17 08:52 Subjective: Subjective: awake, alert, comfortable. Does not report any new issues/complaints; feels his right leg is stronger today. Objective: Vital Signs Temp Pulse Resp BP Pulse Ox 37.2 C 67 16 142/73 H 95 12/17/17 07:40 12/17/17 07:40 12/17/17 07:40 12/17/17 07:40 12/17/17 07:40 Microbiology 12/13/17 08:53 Gram Stain - Final Other - Anaerobic Tube/Swab Laboratory Results 12/16/17 04:05 12/17/17 04:33 12/16/17 12/17/17 12/18/17 05:59 05:59 05:59 Intake Total 2306 2362.4 40 Output Total 2160 3605 1 Balance 146 -1242.6 39 PT 15.0 SEC (12.0-15.0) 12/15/17 06:50 INR 1.16 (0.83-1.16) 12/15/17 06:50 Neuro: A+Ox4 follows commands chronic Right foot weakness Right iliopsoas 4-/5 JULIO: to thumbprint suction. bloody ICD10 Worksheet Patient Problems: Problems Problem Status Onset Degenerative lumbar spinal stenosis Acute Degenerative lumbar spinal stenosis Acute Lumbar canal stenosis Acute
[2017-12-17] MEDS: IPRATROPIUM/ALBUTEROL 3 ML DEYVIAL IH SCH ×3 (10:03→21:50)
[2017-12-17] MEDS: HEPARIN/DEXTROSE 500 ML IV SCH (10:38)
[2017-12-17] MEDS ORDERED: BISACODYL 10 MG SUPP PR ONE (15:06)
--- NOTE | 2017-12-17 15:47 | ASMTCMCOM ---
CM Note CM Note Notes: Spoke with Inga from [facility] and sent updated notes per her request. D/C date unknown at this time. Pt has an NGT and JULIO drain. CM will continue to follow. D/C Plan: [facility] Date Signed: 12/17/2017 03:47 PM Electronically Signed By:IMELDA Hawthorne
[2017-12-17] MEDS: HEPARIN 10,000 UNIT/10 ML MDV (1,000 UNIT/ML) IVP PRN (22:18)
[2017-12-17] MEDS: ATORVASTATIN CALCIUM 10 MG TAB PO SCH (22:34)
[2017-12-17] MEDS: EZETIMIBE 10 MG TAB PO SCH (22:34)
[2017-12-17] MEDS: TERAZOSIN HCL 5 MG CAP PO SCH (22:35)
[2017-12-17] MEDS: MAGNESIUM OXIDE 400 MG TAB PO SCH (22:36)
[2017-12-17] MEDS: FINASTERIDE 5 MG TAB PO SCH (22:36)
[2017-12-17] MEDS: amLODIPine BESYLATE 5 MG TAB PO SCH (22:37)
[2017-12-17] MEDS: SERTRALINE HCL 100 MG TAB PO SCH (22:39)
[2017-12-18] MEDS: AMPICILLIN/SULBACTAM 3 GM in NS 100 ML IV SCH ×5 (00:30→23:31)
[2017-12-18] MEDS: HEPARIN/DEXTROSE 500 ML IV SCH ×2 (03:49→21:43)
[2017-12-18 05:28] LABS: PLATELET COUNT 183 10^3/uL (150-400)
[2017-12-18] MEDS: GABAPENTIN 300 MG CAP PO SCH ×3 (05:48→21:46)
[2017-12-18] MEDS: ACETAMINOPHEN 500 MG TAB PO SCH ×3 (05:48→23:21)
[2017-12-18] MEDS: IPRATROPIUM/ALBUTEROL 3 ML DEYVIAL IH SCH ×4 (06:07→21:27)
--- NOTE | 2017-12-18 07:24 | SOAPPROG ---
SOAP Progress Note Assessment/Plan: Assessment: POD #5 L1-S1 fusion with L2/3,3/4 TLIF and L3-s1 hardware removal - stable clinically with slightly stable to improving right iliopsoas weakness. Plan: - PT/OT as tolerated - appreciate medicine mgmt of PE (heparin drip) and Ileus (NG in place) - Continue JULIO drain given his heparin drip and continued high output - lumbar xrays when he can tolerate them - daily dressing changes 12/18/17 07:22 Subjective: no new complaints this morning; pain controlled; making slow progress Objective: Vital Signs Temp Pulse Resp BP Pulse Ox 37.0 C 65 18 153/77 H 92 12/18/17 04:00 12/18/17 06:08 12/18/17 06:08 12/18/17 04:00 12/18/17 06:08 Microbiology 12/13/17 08:53 Gram Stain - Final Other - Anaerobic Tube/Swab Laboratory Results 12/18/17 04:48 12/18/17 04:48 12/17/17 12/18/17 12/19/17 05:59 05:59 05:59 Intake Total 2362.4 3416 Output Total 3605 1201 Balance -1242.6 2215 PT 15.0 SEC (12.0-15.0) 12/15/17 06:50 INR 1.16 (0.83-1.16) 12/15/17 06:50 Neuro: A+Ox4 follows commands chronic right foot weakness Right iliopsoas 4-/5 - stable JULIO: to thumbprint suction. bloody. 150 mL overnight ICD10 Worksheet Patient Problems: Problems Problem Status Onset Degenerative lumbar spinal stenosis Acute Degenerative lumbar spinal stenosis Acute Lumbar canal stenosis Acute
[2017-12-18] MEDS: FAMOTIDINE 20 MG TAB PO SCH (08:42)
[2017-12-18] MEDS: PYRIDOXINE HCL 100 MG TAB PO SCH (08:42)
[2017-12-18] MEDS: SENNOSIDES/DOCUSATE SODIUM TAB PO SCH ×2 (08:42→20:11)
[2017-12-18] MEDS: FOLIC ACID 1 MG TAB PO SCH (08:42)
[2017-12-18] MEDS: METHOCARBAMOL 750 MG TAB PO PRN (08:43)
--- NOTE | 2017-12-18 08:48 | HOSPPROG ---
Hospitalist Progress Note Assessment/Plan: [facility] Patient Name: SILVERIO DORSEY Rpt#: [id number] Unit Number: [id number] Attending/ER Physician: MARY MARTIN Patient Type: ADM IN Adm Date/Source: 12/13/17 PHY Discharge Date: Primary Carrier: MEDICARE INPATIENT Silverio is a a 77-year-old gentleman with a history of coronary artery disease, hx of DVT and PE. He is s/p L1-s1 fusion w L2-4 TLIF with a CSF leak from previously placed screw. *Hypotension -resolved *PE -heparin gtt -hx of a PE 2 years ago after surgery, also a dvt -echo does not indicate any heart strain -will need Coumadin initiate *anemia -with his hx of cardiac disease, will give him a unit of prbc *dural tear s/p lumbar surgery -resolved *post op ileus -resolved, has some bloating, but had a bowel movement yesterday -dc NG -has good bowel sounds -advance to a soft diet *concern for aspiration pneumonia - Unasyn + duonebs -hx of smoking *elevated creat secondary to hypotensive episoded -dc nephrotoxic meds, decrease dose of pepcid) -resolved *pain due to recent surgery -minimal pain *plan: asked IP rehab to evaluate, give a unit of prbc's, dc NG Subjective: True is having discomfort from the NG tube. Objective: Vital Signs Temp Pulse Resp BP Pulse Ox 37.0 C 65 18 153/77 H 92 12/18/17 04:00 12/18/17 06:08 12/18/17 06:08 12/18/17 04:00 12/18/17 06:08 Microbiology 12/13/17 08:53 Gram Stain - Final Other - Anaerobic Tube/Swab Laboratory Results 12/18/17 04:48 12/18/17 04:48 12/17/17 12/18/17 12/19/17 05:59 05:59 05:59 Intake Total 2362.4 3416 Output Total 3605 1201 Balance -1242.6 2215 PT 15.0 SEC (12.0-15.0) 12/15/17 06:50 INR 1.16 (0.83-1.16) 12/15/17 06:50 - Physical Exam Constitutional: no apparent distress, appears nourished, not in pain, chronically ill appearing Eyes: PERRL Ears, Nose, Mouth, Throat: hearing normal Cardiovascular: regular rate and rhythym Respiratory: no respiratory distress, reduced air movement Gastrointestinal: normoactive bowel sounds, distension (slightly) Skin: warm, No normal color (pale) Musculoskeletal: generalized weakness Neurologic: AAOx3 Psychiatric: interacting appropriately ICD10 Worksheet Patient Problems: Problems Problem Status Onset Degenerative lumbar spinal stenosis Acute Degenerative lumbar spinal stenosis Acute Lumbar canal stenosis Acute
[2017-12-18] MEDS: POLYETHYLENE GLYCOL 3350 17 GM PKT PO SCH ×3 (08:52→23:22)
[2017-12-18] MEDS ORDERED: FUROSEMIDE 20 MG/2 ML VIAL IVP ONE ×2 (08:57→19:00)
[2017-12-18] MEDS ORDERED: ACETAMINOPHEN 325 MG TAB PO ONE (08:57)
[2017-12-18] MEDS ORDERED: WARFARIN SODIUM 5 MG TAB PO SCH (16:00)
[2017-12-18] MEDS: TAMSULOSIN HCL 0.4 MG CAP PO SCH (20:10)
[2017-12-18] MEDS: FINASTERIDE 5 MG TAB PO SCH (20:10)
[2017-12-18] MEDS: ATORVASTATIN CALCIUM 10 MG TAB PO SCH (20:10)
[2017-12-18] MEDS: amLODIPine BESYLATE 5 MG TAB PO SCH (20:10)
[2017-12-18] MEDS: SERTRALINE HCL 100 MG TAB PO SCH (20:11)
[2017-12-18] MEDS: EZETIMIBE 10 MG TAB PO SCH (20:11)
[2017-12-18] MEDS: TERAZOSIN HCL 5 MG CAP PO SCH (20:11)
[2017-12-18] MEDS: MAGNESIUM OXIDE 400 MG TAB PO SCH (20:11)
[2017-12-18] MEDS: HEPARIN 10,000 UNIT/10 ML MDV (1,000 UNIT/ML) IVP PRN (21:43)
[2017-12-19 03:49] LABS: PLATELET COUNT 203 10^3/uL (150-400)
[2017-12-19] MEDS: GABAPENTIN 300 MG CAP PO SCH ×4 (05:47→22:58)
[2017-12-19] MEDS: ACETAMINOPHEN 500 MG TAB PO SCH ×3 (05:47→22:56)
[2017-12-19] MEDS: BISACODYL 10 MG SUPP PR PRN (05:48)
[2017-12-19] MEDS: AMPICILLIN/SULBACTAM 3 GM in NS 100 ML IV SCH ×3 (05:49→18:10)
[2017-12-19] MEDS: IPRATROPIUM/ALBUTEROL 3 ML DEYVIAL IH SCH ×3 (06:25→17:08)
--- NOTE | 2017-12-19 08:43 | HOSPPROG ---
Hospitalist Progress Note Assessment/Plan: [facility] Patient Name: SILVERIO DORSEY Rpt#: [id number] Unit Number: [id number] Attending/ER Physician: MARY MARTIN Patient Type: ADM IN Adm Date/Source: 12/13/17 PHY Discharge Date: Primary Carrier: MEDICARE INPATIENT Silverio is a a 77-year-old gentleman with a history of coronary artery disease, hx of DVT and PE. He is s/p L1-s1 fusion w L2-4 TLIF with a CSF leak from previously placed screw. *nausea and vomiting -will get an abd x ray now -has + bowel sounds, but abdomen is distended -may need another NG *Hypotension -resolved *PE -heparin gtt -hx of a PE 2 years ago after surgery, also a dvt -echo does not indicate any heart strain -will need Coumadin initiate *anemia -improved w transfusion *dural tear s/p lumbar surgery -resolved *post op ileus -resolved, has some bloating, but had a bowel movement yesterday -dc NG -has good bowel sounds -advance to a soft diet *concern for aspiration pneumonia - Unasyn + duonebs -hx of smoking *elevated creat secondary to hypotensive episoded -dc nephrotoxic meds, decrease dose of pepcid) -resolved *pain due to recent surgery -minimal pain *plan: asked IP rehab to evaluate Subjective: jennifer is feeling very distended again. Objective: Vital Signs Temp Pulse Resp BP Pulse Ox 37.1 C 70 14 139/71 H 94 12/19/17 08:00 12/19/17 08:00 12/19/17 08:00 12/19/17 08:00 12/19/17 08:00 Laboratory Results 12/19/17 03:30 12/18/17 04:48 12/18/17 12/19/17 12/20/17 05:59 05:59 05:59 Intake Total 3416 4093 Output Total 1201 1480 650 Balance 2210 0753 -877 PT REJ 12/19/17 03:30 INR REJ 12/19/17 03:30 - Physical Exam Constitutional: chronically ill appearing, uncomfortable Eyes: PERRL Ears, Nose, Mouth, Throat: hearing normal Respiratory: no respiratory distress Gastrointestinal: distension, No normoactive bowel sounds (hypoactive) Skin: warm Musculoskeletal: generalized weakness Neurologic: AAOx3 Psychiatric: interacting appropriately ICD10 Worksheet Patient Problems: Problems Problem Status Onset Degenerative lumbar spinal stenosis Acute Degenerative lumbar spinal stenosis Acute Lumbar canal stenosis Acute
--- NOTE | 2017-12-19 08:50 | SOAPPROG ---
SOAP Progress Note Assessment/Plan: Assessment: POD #6 L1-S1 fusion with L2/3,3/4 TLIF and L3-s1 hardware removal - stable clinically with slightly stable right iliopsoas weakness. Plan: - PT/OT as tolerated - appreciate medicine mgmt of PE (coumadin has been started 9/ and still on heparin drip) and Ileus (NG removed yesterday) - Continue JULIO drain given his heparin drip and anti-coagulation - lumbar xrays when he can tolerate them - daily dressing changes 12/19/17 08:49 Subjective: feeling better this morning with the NG removed; no other complaints; getting out of bed with assistance Objective: Vital Signs Temp Pulse Resp BP Pulse Ox 37.1 C 70 14 139/71 H 94 12/19/17 08:00 12/19/17 08:00 12/19/17 08:00 12/19/17 08:00 12/19/17 08:00 Laboratory Results 12/19/17 03:30 12/18/17 04:48 12/18/17 12/19/17 12/20/17 05:59 05:59 05:59 Intake Total 3416 4093 Output Total 1201 1480 650 Balance 2215 2613 -650 PT REJ 12/19/17 03:30 INR REJ 12/19/17 03:30 Neuro: A+Ox4 follows commands chronic right foot weakness Right iliopsoas 4-/5 - stable JULIO: to thumbprint suction. bloody. 60 mL overnight ICD10 Worksheet Patient Problems: Problems Problem Status Onset Degenerative lumbar spinal stenosis Acute Degenerative lumbar spinal stenosis Acute Lumbar canal stenosis Acute
[2017-12-19] MEDS: SENNOSIDES/DOCUSATE SODIUM TAB PO SCH ×2 (09:35→22:57)
[2017-12-19] MEDS: PYRIDOXINE HCL 100 MG TAB PO SCH (09:35)
[2017-12-19] MEDS: FAMOTIDINE 20 MG TAB PO SCH (09:35)
[2017-12-19] MEDS: FOLIC ACID 1 MG TAB PO SCH (09:35)
[2017-12-19] MEDS: POLYETHYLENE GLYCOL 3350 17 GM PKT PO SCH ×3 (09:35→22:57)
[2017-12-19] MEDS ORDERED: PROMETHAZINE HCL 25 MG/ML INJ IVP ONE ×2 (09:41→11:15)
[2017-12-19] MEDS ORDERED: LIDOCAINE 2% JELLY 20 ML (UROJECT) UR ONE (10:30)
[2017-12-19 10:56] LABS: INR 1.1 (0.83-1.16); PROTIME(PATIENT) 14.4 SEC (12.0-15.0)
[2017-12-19] MEDS ORDERED: LIDOCAINE 2% JELLY 20 ML (UROJECT) TP ONE (11:00)
[2017-12-19] MEDS: PANTOPRAZOLE SODIUM 40 MG VIAL IVP SCH (11:15)
[2017-12-19] MEDS: HEPARIN/DEXTROSE 500 ML IV SCH (11:19)
[2017-12-19] MEDS ORDERED: METOCLOPRAMIDE 10 MG/2 ML VIAL IVP SCH (12:00)
[2017-12-19] MEDS ORDERED: WARFARIN SODIUM 5 MG TAB PO SCH (16:00)
[2017-12-19] MEDS ORDERED: PROMETHAZINE HCL 25 MG/ML INJ IVP PRN (16:53)
--- NOTE | 2017-12-19 17:28 | ASMTCMCOM ---
CM Note CM Note Notes: Updated patient info sent to [facility]. Date Signed: 12/19/2017 05:27 PM Electronically Signed By:Jessie Rendon LCSW
[2017-12-19] MEDS: NS 1,000 ML IV SCH (18:25)
[2017-12-19] MEDS: amLODIPine BESYLATE 5 MG TAB PO SCH (22:56)
[2017-12-19] MEDS: EZETIMIBE 10 MG TAB PO SCH (22:57)
[2017-12-19] MEDS: FINASTERIDE 5 MG TAB PO SCH (22:57)
[2017-12-19] MEDS: ATORVASTATIN CALCIUM 10 MG TAB PO SCH (22:57)
[2017-12-19] MEDS: MAGNESIUM OXIDE 400 MG TAB PO SCH (22:57)
[2017-12-19] MEDS: TERAZOSIN HCL 5 MG CAP PO SCH (22:58)
[2017-12-19] MEDS: TAMSULOSIN HCL 0.4 MG CAP PO SCH (22:58)
[2017-12-20] MEDS: AMPICILLIN/SULBACTAM 3 GM in NS 100 ML IV SCH ×4 (00:47→17:36)
[2017-12-20] MEDS: IPRATROPIUM/ALBUTEROL 3 ML DEYVIAL IH SCH ×3 (01:44→10:16)
[2017-12-20] MEDS: NS 1,000 ML IV SCH ×2 (03:41→17:32)
[2017-12-20] MEDS: HEPARIN/DEXTROSE 500 ML IV SCH ×2 (04:03→19:35)
[2017-12-20 05:45] LABS: INR 1.15 (0.83-1.16); PROTIME(PATIENT) 14.9 SEC (12.0-15.0)
[2017-12-20] MEDS: HEPARIN 10,000 UNIT/10 ML MDV (1,000 UNIT/ML) IVP PRN (06:18)
[2017-12-20] MEDS: ACETAMINOPHEN 500 MG TAB PO SCH ×3 (07:13→22:07)
[2017-12-20] MEDS: GABAPENTIN 300 MG CAP PO SCH ×3 (07:14→22:08)
[2017-12-20] MEDS: EZETIMIBE 10 MG TAB PO SCH (08:44)
[2017-12-20] MEDS: SENNOSIDES/DOCUSATE SODIUM TAB PO SCH ×2 (08:44→22:11)
[2017-12-20] MEDS: POLYETHYLENE GLYCOL 3350 17 GM PKT PO SCH ×3 (08:44→23:10)
[2017-12-20] MEDS: PANTOPRAZOLE SODIUM 40 MG VIAL IVP SCH (08:44)
[2017-12-20] MEDS: FAMOTIDINE 20 MG TAB PO SCH (08:44)
[2017-12-20] MEDS: PYRIDOXINE HCL 100 MG TAB PO SCH (08:44)
[2017-12-20] MEDS: FOLIC ACID 1 MG TAB PO SCH (08:44)
--- NOTE | 2017-12-20 09:00 | NEUSURGPN ---
Date of Surgery: 12/13/17 Post Op Day: 7 Assessment/Plan: POD #7 L1-S1 fusion with L2/3,3/4 TLIF and L3-s1 hardware removal - stable clinically with slightly stable right iliopsoas weakness. Plan: - PT/OT as tolerated - appreciate medicine mgmt of PE (coumadin has been started 12/18 and still on heparin drip) and Ileus (NG removed yesterday) - Continue JULIO drain given his heparin drip and anti-coagulation - lumbar xrays when he can tolerate them - daily dressing changes Patient discussed with Dr Ellis Please call neurosurgery with any questions/concerns Subjective: Feels his is making some improvement, feels his stomach is softer Objective: AxO x3 chronic right foot weakness Right iliopsoas 4-/5 - stable JULIO: to thumbprint suction. bloody Neuro Check Frequency: per routine Urinary Catheter in Place: No Catheter Insertion Date: 12/13/17 - Physician Discussed Patient with Dr.: Ellis Neurosurgery Physical Exam - Vitals, I&O, Labs I and O 12/19/17 12/20/17 12/21/17 05:59 05:59 05:59 Intake Total 4093 1134 1633 Output Total 1480 2135 160 Balance 2613 -1001 1473 Intake: Oral (ml) 2600 IV Intake (ml) 10 IV Infused (ml) 1114 1134 1633 Ampicillin/Sulbactam 3 gm 300 139 165 In Ns 100 ml @ 200 mls/ hr IV Q6HRS SUNNI Rx#: [id number] Heparin/Dextrose 500 ml @ 345 644 365 Per Protocol IV CONT SUNNI Rx#:[id number] Ns 1,000 ml @ 125 mls/hr 990 763 0986 IV CONT SUNNI Rx#: [id number] Packed Red Blood Cells ( 369 ml) Output: Urine (ml) 1420 1090 150 Incontinence 400 Urinal 1020 1090 150 Emesis (ml) 400 NG Tube Output (ml) 400 Large Bore (>12 [place]) 400 Left Naris 18 [place] JULIO Drain Output (ml) 60 245 10 Back Jered Gómez 60 245 10 Other: Number of Voids Incontinence 1 Urinal 1 2 Number of Emesis 1 Occurrences Microbiology 12/13/17 08:53 Gram Stain - Final Other - Anaerobic Tube/Swab Vital Signs Temp Pulse Resp BP Pulse Ox 36.8 C 60 14 159/84 H 95 12/20/17 08:00 12/20/17 08:00 12/20/17 08:00 12/20/17 08:00 12/20/17 08:00 Laboratory Results 12/19/17 03:30 12/20/17 05:20 ICD10 Worksheet Patient Problems: Problems Problem Status Onset Degenerative lumbar spinal stenosis Acute Degenerative lumbar spinal stenosis Acute Lumbar canal stenosis Acute
--- NOTE | 2017-12-20 15:00 | HOSPPROG ---
Hospitalist Progress Note Assessment/Plan: DIAGNOSES: * postop day 7 from spine surgery * postoperative ileus which he has experienced in the past as well * hypertension currently uncontrolled with systolics elevated * acute pulmonary embolism with heparin anticoagulation * Some fluctuation in heparin levels, no signs of bleeding * volume overload/edema, likely due to combination of resuscitation fluids, IV medicines, decreased nutrition, etc * anemia * hypotensive episode resolved * acute renal insufficiency due to hypotensive episode * question of aspiration pneumonia PLANS: * The NG tube out for now * Begin sips of fluids * Increase physical activity hopefully can walk in hallway today * Will give some Lasix to remove volume overload at this time which could potentially help his mobility as well as his ileus * Begin scheduled Coumadin at regular dosing today follow INR closely, continue IV heparin drip for now SUBJECTIVE: The patient feels somewhat better today, with no increase in bloating, no nausea , no increase in pain, and with increasing flatus despite NG tube coming out last night No fever symptoms Moving around room better OBJECTIVE Vitals reviewed: Some hypertension otherwise stable without fever [employer], my review: Exam: alert oriented skin warm dry color ok resps not labored lungs clear BSs heart regular abd soft nondistended nontender, bowel sounds present limbs warm, pitting edema is present at both legs from knees down to toes, 1+ iv site ok Laboratory data: Heparin level 0.29 this morning 0.7 this afternoon Objective: Vital Signs Temp Pulse Resp BP Pulse Ox 37.1 C 70 14 162/86 H 93 12/20/17 11:34 12/20/17 11:34 12/20/17 11:34 12/20/17 11:34 12/20/17 11:34 Microbiology 12/13/17 08:53 Gram Stain - Final Other - Anaerobic Tube/Swab Laboratory Results 12/19/17 03:30 12/20/17 05:20 12/19/17 12/20/17 12/21/17 06:59 06:59 06:59 Intake Total 4093 2767 Output Total 1510 2265 50 Balance 2583 502 -50 PT 14.9 SEC (12.0-15.0) 12/20/17 05:20 INR 1.15 (0.83-1.16) 12/20/17 05:20 ICD10 Worksheet Patient Problems: Problems Problem Status Onset Degenerative lumbar spinal stenosis Acute Degenerative lumbar spinal stenosis Acute Lumbar canal stenosis Acute
[2017-12-20] MEDS ORDERED: FUROSEMIDE 20 MG/2 ML VIAL IVP ONE (15:36)
[2017-12-20] MEDS: BISACODYL 10 MG SUPP PR PRN (16:14)
[2017-12-20] MEDS: WARFARIN SODIUM 5 MG TAB PO SCH (17:02)
--- NOTE | 2017-12-20 17:22 | ASMTCMCOM ---
CM Note CM Note Notes: Pt discharge likely at least 3 more days to [facility]. PT and hospitalist notes updated with [facility] today. D/C Plan: [facility] Date Signed: 12/20/2017 05:21 PM Electronically Signed By:Christal Ramirez
[2017-12-20] MEDS: amLODIPine BESYLATE 5 MG TAB PO SCH (22:08)
[2017-12-20] MEDS: FINASTERIDE 5 MG TAB PO SCH (22:09)
[2017-12-20] MEDS: MAGNESIUM OXIDE 400 MG TAB PO SCH (22:10)
[2017-12-20] MEDS: ATORVASTATIN CALCIUM 10 MG TAB PO SCH (22:10)
[2017-12-20] MEDS: TERAZOSIN HCL 5 MG CAP PO SCH (22:10)
[2017-12-20] MEDS: SERTRALINE HCL 100 MG TAB PO SCH (22:10)
[2017-12-20] MEDS: TAMSULOSIN HCL 0.4 MG CAP PO SCH (22:11)
[2017-12-21] MEDS: AMPICILLIN/SULBACTAM 3 GM in NS 100 ML IV SCH ×2 (00:19→05:56)
[2017-12-21 05:23] LABS: INR 1.32 (0.83-1.16); PROTIME(PATIENT) 16.6 SEC (12.0-15.0)
[2017-12-21] MEDS: ACETAMINOPHEN 500 MG TAB PO SCH ×3 (05:54→21:02)
[2017-12-21] MEDS: GABAPENTIN 300 MG CAP PO SCH ×3 (05:54→21:00)
--- NOTE | 2017-12-21 08:09 | SOAPPROG ---
SOAP Progress Note Assessment/Plan: Assessment: 77 yo M POD #8 L1-S1 fusion with L2-4 TLIF with csf leak from previously placed screw Plan: neuro: stable and making slow progress overall PE: on heparin, appreciate help from Hospitalists Pneumonia: on Unasyn, appreciate help from Hospitalists ARF: resolved, likely from hypotension PT/OT scd/zac for dvt prophylaxis ileus: Ng tube out, slowly advancing diet JULIO removed post op x-rays look good to [facility] once condition improves please call with neuro changes discussed with Dr Skinner 12/15/17 07:33 12/21/17 08:04 12/21/17 08:09 Subjective: minimal back pain, no leg pain. Patient walked into [facility] yesterday Objective: Vital Signs Temp Pulse Resp BP Pulse Ox 36.8 C 65 16 153/81 H 95 12/21/17 07:32 12/21/17 07:32 12/21/17 07:32 12/21/17 07:32 12/21/17 07:32 Microbiology 12/13/17 08:53 Gram Stain - Final Other - Anaerobic Tube/Swab Laboratory Results 12/19/17 03:30 12/20/17 05:20 12/20/17 12/21/17 12/22/17 05:59 05:59 05:59 Intake Total 1134 4133 356 Output Total 2135 520 Balance -1001 3613 356 PT 16.6 SEC (12.0-15.0) H 12/21/17 04:48 INR 1.32 (0.83-1.16) H 12/21/17 04:48 AAOX4, +FC PERRL, EOMI, no facial droop 5/5 except right DF 0/5, left PF 4/5 chronic + light touch C/D/I ICD10 Worksheet Patient Problems: Problems Problem Status Onset Degenerative lumbar spinal stenosis Acute Degenerative lumbar spinal stenosis Acute Lumbar canal stenosis Acute
[2017-12-21] MEDS: NS 1,000 ML IV SCH (09:56)
[2017-12-21] MEDS: SENNOSIDES/DOCUSATE SODIUM TAB PO SCH ×2 (09:58→23:56)
[2017-12-21] MEDS: METHOCARBAMOL 750 MG TAB PO PRN (09:58)
[2017-12-21] MEDS: PANTOPRAZOLE SODIUM 40 MG VIAL IVP SCH (09:58)
[2017-12-21] MEDS: PYRIDOXINE HCL 100 MG TAB PO SCH (09:58)
[2017-12-21] MEDS: FOLIC ACID 1 MG TAB PO SCH (09:58)
[2017-12-21] MEDS: FAMOTIDINE 20 MG TAB PO SCH (09:58)
[2017-12-21] MEDS: POLYETHYLENE GLYCOL 3350 17 GM PKT PO SCH ×3 (10:31→23:56)
[2017-12-21] MEDS ORDERED: FUROSEMIDE 20 MG/2 ML VIAL IVP ONE (10:48)
--- NOTE | 2017-12-21 10:53 | HOSPPROG ---
Hospitalist Progress Note Assessment/Plan: DIAGNOSES: * postop day 8 from spine surgery * postoperative ileus which he has experienced in the past as well * Improving but still quite bloated with not much appetite and not moving bowels yet * hypertension currently uncontrolled with systolics mildly elevated * acute pulmonary embolism with heparin anticoagulation * Some fluctuation in heparin levels, no signs of bleeding * Coumadin started * volume overload/edema, likely due to combination of resuscitation fluids, IV medicines, decreased nutrition, etc * anemia * hypotensive episode resolved * acute renal insufficiency due to hypotensive episode, resolved * question of aspiration pneumonia, resolved after treatment with antibiotic PLANS: * Increase to full liquids diet, add Ensure * Increase physical activity and walking distances today * Will give 1 more dose Lasix to remove volume overload at this time which could potentially help his mobility as well as his ileus * Continue Coumadin, follow INR closely, continue IV heparin drip for now * Will stop antibiotic at this point which had been getting for aspiration SUBJECTIVE: Feels better overall, no nausea vomiting, taking some clear liquids without difficulty Has been up ambulating a bit more Still bloated but having flatus and bowel sounds No bowel movement yet OBJECTIVE Vitals reviewed: Some mild hypertension otherwise stable without fever [employer] G[employer]er, my review: Exam: alert oriented skin warm dry color ok resps not labored lungs clear BSs heart regular abd soft remains distended but nontender, bowel sounds present limbs warm, still a bit of pitting edema is present at both legs from knees down to toes, 1+ iv site ok Laboratory data: Heparin level therapeutic INR 1.3 Objective: Vital Signs Temp Pulse Resp BP Pulse Ox 36.8 C 65 16 153/81 H 95 12/21/17 07:32 12/21/17 07:32 12/21/17 07:32 12/21/17 07:32 12/21/17 07:32 Microbiology 12/13/17 08:53 Gram Stain - Final Other - Anaerobic Tube/Swab Laboratory Results 12/19/17 03:30 12/20/17 05:20 12/20/17 12/21/17 12/22/17 06:59 06:59 06:59 Intake Total 2767 2856 Output Total 2265 360 400 Balance 502 2496 -400 PT 16.6 SEC (12.0-15.0) H 12/21/17 04:48 INR 1.32 (0.83-1.16) H 12/21/17 04:48 ICD10 Worksheet Patient Problems: Problems Problem Status Onset Degenerative lumbar spinal stenosis Acute Degenerative lumbar spinal stenosis Acute Lumbar canal stenosis Acute
[2017-12-21] MEDS: HEPARIN/DEXTROSE 500 ML IV SCH (11:42)
[2017-12-21] MEDS: WARFARIN SODIUM 5 MG TAB PO SCH (16:38)
[2017-12-21] MEDS: MAGNESIUM OXIDE 400 MG TAB PO SCH (21:00)
[2017-12-21] MEDS: TERAZOSIN HCL 5 MG CAP PO SCH (21:00)
[2017-12-21] MEDS: SERTRALINE HCL 100 MG TAB PO SCH (21:00)
[2017-12-21] MEDS: EZETIMIBE 10 MG TAB PO SCH (21:00)
[2017-12-21] MEDS: ATORVASTATIN CALCIUM 10 MG TAB PO SCH (21:00)
[2017-12-21] MEDS: amLODIPine BESYLATE 5 MG TAB PO SCH (21:03)
[2017-12-21] MEDS: TAMSULOSIN HCL 0.4 MG CAP PO SCH (21:03)
[2017-12-21] MEDS: FINASTERIDE 5 MG TAB PO SCH (21:12)
[2017-12-22] MEDS: HEPARIN/DEXTROSE 500 ML IV SCH ×2 (04:23→22:43)
[2017-12-22 05:07] LABS: INR 1.99 (0.83-1.16); PROTIME(PATIENT) 22.7 SEC (12.0-15.0)
[2017-12-22] MEDS: ACETAMINOPHEN 500 MG TAB PO SCH ×3 (05:24→22:47)
[2017-12-22] MEDS: GABAPENTIN 300 MG CAP PO SCH ×3 (05:25→22:47)
[2017-12-22] MEDS: HEPARIN 10,000 UNIT/10 ML MDV (1,000 UNIT/ML) IVP PRN (06:02)
--- NOTE | 2017-12-22 07:27 | SOAPPROG ---
SOAP Progress Note Assessment/Plan: Assessment: 77 yo M POD #9 L1-S1 fusion with L2-4 TLIF with csf leak from previously placed screw Plan: neuro: stable and making slow progress overall PE: on heparin, appreciate help from Hospitalists Pneumonia: on Unasyn, appreciate help from Hospitalists ARF: resolved, likely from hypotension PT/OT scd/zac for dvt prophylaxis ileus: Ng tube out, slowly advancing diet JULIO removed post op x-rays look good to [facility] once condition improves, maybe today ?? please call with neuro changes discussed with Dr Skinner 12/15/17 07:33 12/21/17 08:04 12/21/17 08:09 12/22/17 07:26 Subjective: back pain improving, no leg pain, no headaches. Objective: Vital Signs Temp Pulse Resp BP Pulse Ox 36.9 C 58 L 16 115/90 H 92 12/21/17 23:05 12/21/17 23:05 12/21/17 23:05 12/21/17 23:05 12/21/17 23:05 Microbiology 12/13/17 08:53 Gram Stain - Final Other - Anaerobic Tube/Swab Laboratory Results 12/19/17 03:30 12/20/17 05:20 12/21/17 12/22/17 12/23/17 05:59 05:59 05:59 Intake Total 4133 2040 Output Total 520 1450 200 Balance 3613 590 -200 PT 22.7 SEC (12.0-15.0) H 12/22/17 04:30 INR 1.99 (0.83-1.16) H 12/22/17 04:30 AAOx4, +FC PERRL, EOMI, no facial droop 5/5 except right DF 0/5, left PF 4/5 + light touch C/D/I ICD10 Worksheet Patient Problems: Problems Problem Status Onset Degenerative lumbar spinal stenosis Acute Degenerative lumbar spinal stenosis Acute Lumbar canal stenosis Acute
[2017-12-22] MEDS: POLYETHYLENE GLYCOL 3350 17 GM PKT PO SCH ×3 (09:05→22:53)
[2017-12-22] MEDS: SENNOSIDES/DOCUSATE SODIUM TAB PO SCH ×2 (09:06→22:49)
[2017-12-22] MEDS: FAMOTIDINE 20 MG TAB PO SCH (09:06)
[2017-12-22] MEDS: PYRIDOXINE HCL 100 MG TAB PO SCH (09:06)
[2017-12-22] MEDS: FOLIC ACID 1 MG TAB PO SCH (09:07)
[2017-12-22] MEDS: PANTOPRAZOLE SODIUM 40 MG VIAL IVP SCH (09:07)
--- NOTE | 2017-12-22 16:11 | ASMTCMCOM ---
CM Note CM Note Notes: July with [facility] reports they will admit pt for a few days to LTAC to monitor, pt has to transport by stretcher when admitting to LTAC. July was going to call pt/ to explain the decision to admit to LTAC. Updated pt/ if medically stable pt will d/c tomorrow. Date Signed: 12/22/2017 04:10 PM Electronically Signed By:IMELDA Peter
[2017-12-22 18:07] LABS: INR 2.26 (0.83-1.16)
[2017-12-22] MEDS: WARFARIN SODIUM 5 MG TAB PO SCH (18:29)
--- NOTE | 2017-12-22 18:29 | HOSPPROG ---
Hospitalist Progress Note Assessment/Plan: DIAGNOSES: * new onset today acute gross hematuria, Vale had been removed approximately 3 days ago; acute PE see below * Patient is asymptomatic as far as the bladder and so far has been voiding his bladder well spontaneously though we have to yet to check a postvoid residual * postop day 8 from spine surgery; remarkable increase in mobility today * postoperative ileus which he has experienced in the past as well * Improving nicely at this time * hypertension still with some mildly elevated systolic pressures * acute pulmonary embolism with heparin anticoagulation * Gross hematuria today see above * Some fluctuation in heparin levels, but on though low to therapeutic side so far today * Coumadin INR now up to 2.2 after 2 doses of 5 mg * volume overload/edema, likely due to combination of resuscitation fluids, IV medicines, decreased nutrition, etc * Improved after some diuretic and with increased mobilization * anemia, expected postsurgical blood loss anemia * hypotensive episode postop, resolved * acute renal insufficiency due to hypotensive episode, resolved * question of aspiration pneumonia, resolved after treatment with antibiotic Overall he is doing notably better, however the hematuria is quite problematic in the setting of anticoagulation for acute postoperative PE. Fortunately in terms of the PE he is quite stable. With some edema in his legs it is unclear whether there are clots in his legs or pelvis, we have not ultrasound of the legs. At the moment with his INR rising rapidly and with this hematuria I will hold off on any further Coumadin. For the moment we have the heparin turned off and I am going to be talking briefly to Urology on-call whom I have paged. I will review the scenario with them carefully. Clearly will need to watch closely for any signs of clotting causing inability to empty the bladder, but will also need to watch for ongoing bleeding which may need other treatment such as irrigation catheter and/or surgical approach to stop. Real question at hand at this moment would be whether to consider stopping heparin altogether and putting of vena cava filter in. PLANS: * Continue full liquids diet, add Ensure, consider regular diet tomorrow * Increase physical activity and walking distances as able * Will talk to Urology tonight about his hematuria and management strategies related to that in the setting of PE * Hold Coumadin at this time, follow INR closely, ? To stop or continue heparin at this time SUBJECTIVE: Overall feeling better Ambulating much better in hallway Eating better and had a bowel movement today, still with some degree of abdominal distension but no nausea no pain Most notably he started having gross hematuria this afternoon without pain, no clots past so far and seems to be emptying his bladder well OBJECTIVE Vitals reviewed: Some mild intermittent hypertension otherwise stable without fever Exam: alert oriented skin warm dry color ok resps not labored lungs clear BSs heart regular abd soft remains distended but nontender, bowel sounds present limbs warm, less edema today with minimal pitting iv site ok Laboratory data: Heparin level therapeutic INR 1.9 this am but 2.2 this pm (has had 2 doses coumadin 5 mg past two days) Objective: Vital Signs Temp Pulse Resp BP Pulse Ox 36.8 C 63 16 146/77 H 94 12/22/17 15:43 12/22/17 15:43 12/22/17 15:43 12/22/17 15:43 12/22/17 15:43 Microbiology 12/13/17 08:53 Gram Stain - Final Other - Anaerobic Tube/Swab Laboratory Results 12/19/17 03:30 12/20/17 05:20 12/21/17 12/22/17 12/23/17 06:59 06:59 06:59 Intake Total 2856 1684 Output Total 360 1650 650 Balance 2496 34 -650 PT 25.0 SEC (12.0-15.0) H 12/22/17 17:51 INR 2.26 (0.83-1.16) H 12/22/17 17:51 - Time Spent With Patient Time Spent with Patient: greater than 35 minutes Time Spent with Patient: Greater than 35 minutes spent on this patients care, greater than 50% of time spent counseling, educating, and coordinating care regarding the above mentioned plan. ICD10 Worksheet Patient Problems: Problems Problem Status Onset Degenerative lumbar spinal stenosis Acute Degenerative lumbar spinal stenosis Acute Lumbar canal stenosis Acute
--- NOTE | 2017-12-22 20:05 | HOSPPROG ---
Hospitalist Progress Note Assessment/Plan: DIAGNOSES: * new onset today acute gross hematuria, Vale had been removed approximately 3 days ago; acute PE see below * Patient is asymptomatic as far as the bladder and so far has been voiding his bladder well spontaneously though we have to yet to check a postvoid residual * postop day 8 from spine surgery; remarkable increase in mobility today * postoperative ileus which he has experienced in the past as well * Improving nicely at this time * hypertension still with some mildly elevated systolic pressures * acute pulmonary embolism with heparin anticoagulation * Gross hematuria today see above * Some fluctuation in heparin levels, but on though low to therapeutic side so far today * Coumadin INR now up to 2.2 after 2 doses of 5 mg * volume overload/edema, likely due to combination of resuscitation fluids, IV medicines, decreased nutrition, etc * Improved after some diuretic and with increased mobilization * anemia, expected postsurgical blood loss anemia * hypotensive episode postop, resolved * acute renal insufficiency due to hypotensive episode, resolved * question of aspiration pneumonia, resolved after treatment with antibiotic Overall he is doing notably better, however the hematuria is quite problematic in the setting of anticoagulation for acute postoperative PE. Fortunately in terms of the PE he is quite stable. With some edema in his legs it is unclear whether there are clots in his legs or pelvis, we have not ultrasound of the legs. At the moment with his INR rising rapidly and with this hematuria I will hold off on any further Coumadin. For the moment we have the heparin turned off and I am going to be talking briefly to Urology on-call whom I have paged. I will review the scenario with them carefully. Clearly will need to watch closely for any signs of clotting causing inability to empty the bladder, but will also need to watch for ongoing bleeding which may need other treatment such as irrigation catheter and/or surgical approach to stop. Real question at hand at this moment would be whether to consider stopping heparin altogether and putting of vena cava filter in. PLANS: * Continue full liquids diet, add Ensure, consider regular diet tomorrow * Increase physical activity and walking distances as able * Will talk to Urology tonight about his hematuria and management strategies related to that in the setting of PE * Hold Coumadin at this time, follow INR closely, ? To stop or continue heparin at this time SUBJECTIVE: Overall feeling better Ambulating much better in hallway Eating better and had a bowel movement today, still with some degree of abdominal distension but no nausea no pain Most notably he started having gross hematuria this afternoon without pain, no clots past so far and seems to be emptying his bladder well OBJECTIVE Vitals reviewed: Some mild intermittent hypertension otherwise stable without fever Exam: alert oriented skin warm dry color ok resps not labored lungs clear BSs heart regular abd soft remains distended but nontender, bowel sounds present limbs warm, less edema today with minimal pitting iv site ok Laboratory data: Heparin level therapeutic INR 1.9 this am but 2.2 this pm (has had 2 doses coumadin 5 mg past two days) Objective: Vital Signs Temp Pulse Resp BP Pulse Ox 36.8 C 63 16 146/77 H 94 12/22/17 15:43 12/22/17 15:43 12/22/17 15:43 12/22/17 15:43 12/22/17 15:43 Microbiology 12/13/17 08:53 Gram Stain - Final Other - Anaerobic Tube/Swab Laboratory Results 12/19/17 03:30 12/20/17 05:20 12/21/17 12/22/17 12/23/17 06:59 06:59 06:59 Intake Total 2856 1684 250 Output Total 360 1650 850 Balance 2496 34 -600 PT 25.0 SEC (12.0-15.0) H 12/22/17 17:51 INR 2.26 (0.83-1.16) H 12/22/17 17:51 ICD10 Worksheet Patient Problems: Problems Problem Status Onset Degenerative lumbar spinal stenosis Acute Degenerative lumbar spinal stenosis Acute Lumbar canal stenosis Acute
[2017-12-22] MEDS: MAGNESIUM OXIDE 400 MG TAB PO SCH (22:47)
[2017-12-22] MEDS: FINASTERIDE 5 MG TAB PO SCH (22:48)
[2017-12-22] MEDS: ATORVASTATIN CALCIUM 10 MG TAB PO SCH (22:48)
[2017-12-22] MEDS: SERTRALINE HCL 100 MG TAB PO SCH (22:48)
[2017-12-22] MEDS: TERAZOSIN HCL 5 MG CAP PO SCH (22:49)
[2017-12-22] MEDS: amLODIPine BESYLATE 5 MG TAB PO SCH (22:49)
[2017-12-22] MEDS: TAMSULOSIN HCL 0.4 MG CAP PO SCH (22:49)
[2017-12-22] MEDS: EZETIMIBE 10 MG TAB PO SCH (22:51)
[2017-12-23] MEDS: ACETAMINOPHEN 500 MG TAB PO SCH ×3 (06:04→21:12)
[2017-12-23] MEDS: GABAPENTIN 300 MG CAP PO SCH ×3 (06:05→21:13)
[2017-12-23 06:19] LABS: INR 2.06 (0.83-1.16); PROTIME(PATIENT) 23.3 SEC (12.0-15.0)
--- NOTE | 2017-12-23 08:35 | NEUSURGPN ---
Assessment/Plan: Assessment: 77 yo M POD #10 L1-S1 fusion with L2-4 TLIF with csf leak from previously placed screw Plan: neuro: stable and making slow progress overall PE: on heparin, appreciate help from Hospitalists. New hematuria this morning. Will defer to medicine for further work up Pneumonia: on Unasyn, appreciate help from Hospitalists ARF: resolved, likely from hypotension PT/OT scd/zac for dvt prophylaxis ileus: Ng tube out, slowly advancing diet JULIO removed post op x-rays look good to [facility] once cleared by medicine please call with neuro changes discussed with Dr Skinner Subjective: Denies ravi new pain, weakness, numbness or tingling Objective: AAOx3, PERRL, EOMI, no facial droop 5/5 except right DF 0/5, left PF 4/5 + light touch C/D/I Catheter Insertion Date: 12/13/17 - Physician Discussed Patient with : [facility] Physical Exam - Vitals, I&O, Labs I and O 12/22/17 12/23/17 12/24/17 05:59 05:59 05:59 Intake Total 2040 250 500 Output Total 1450 2250 900 Balance 590 -2000 -400 Intake: Oral (ml) 250 500 IV Infused (ml) 2040 Ampicillin/Sulbactam 3 gm 110 In Ns 100 ml @ 200 mls/ hr IV Q6HRS SUNNI Rx#: [id number] Heparin/Dextrose 500 ml @ 1017 Per Protocol IV CONT SUNNI Rx#:[id number] Ns 1,000 ml @ 100 mls/hr 913 IV CONT SUNNI Rx#: [id number] Output: Urine (ml) 1450 2250 900 Catheter 1000 Toilet 350 Urinal 1450 900 900 Other: Number of Voids Incontinence 1 Toilet 1 Urinal 1 1 Number of Stools Toilet 1 Post Void Residual Scan Volume (ml) Toilet 200 Microbiology 12/13/17 08:53 Gram Stain - Final Other - Anaerobic Tube/Swab Vital Signs Temp Pulse Resp BP Pulse Ox 36.5 C 65 17 159/82 H 91 L 12/23/17 07:49 12/23/17 07:49 12/23/17 07:49 12/23/17 07:49 12/23/17 07:49 Laboratory Results 12/23/17 02:44 12/20/17 05:20 ICD10 Worksheet Patient Problems: Problems Problem Status Onset Degenerative lumbar spinal stenosis Acute Degenerative lumbar spinal stenosis Acute Lumbar canal stenosis Acute
[2017-12-23] MEDS: SENNOSIDES/DOCUSATE SODIUM TAB PO SCH ×2 (09:28→21:17)
[2017-12-23] MEDS: POLYETHYLENE GLYCOL 3350 17 GM PKT PO SCH ×3 (09:28→21:14)
[2017-12-23] MEDS: FAMOTIDINE 20 MG TAB PO SCH (09:29)
[2017-12-23] MEDS: FOLIC ACID 1 MG TAB PO SCH (09:29)
[2017-12-23] MEDS: PYRIDOXINE HCL 100 MG TAB PO SCH (09:29)
[2017-12-23] MEDS: PANTOPRAZOLE SODIUM 40 MG VIAL IVP SCH (09:29)
[2017-12-23] MEDS: HEPARIN 10,000 UNIT/10 ML MDV (1,000 UNIT/ML) IVP PRN ×2 (13:08→20:04)
[2017-12-23] MEDS: HEPARIN/DEXTROSE 500 ML IV SCH (15:07)
--- NOTE | 2017-12-23 15:22 | PDCONSULT ---
Display Manager Note: [facility] hematuria Requested by DR. Zeferino Daniel MD HPI 77M overall healthy w hx BPH, recent spine surgery for stenosis, developed postop PE, on heparin gtt. On the drip yesterday, his urine became bloody. He was still able to void, passed no clots. No pain w urination, no hx UTIs. No hx hematuria in the past. No hx kidney stones, cancers in himself or his family. +smoking hx - 1ppd for 10 years. PMH Spinal stenosis BPH CVD - stents 2002 ROS 10 pt ROS performed, as stated in HPI, otherwise negative. FH/SH/Meds/All reviewed in chart. PE AFVSS Gen NAD A&O CV regular Lungs Normal effort Abd soft Ext warm, no edema Vale in place, urine clear in tubing. Labs: Urine neg leuks, neg nitrates, +RBCs. Not indicating infection but UCX pending. A/P Painless gross hematuria. Anticoagulated Hematuria is abnormal even in the setting of anticoagulation. Needs hematuria evaluation w CT scan and cystoscopy. CT Urogram today. Cystoscopy as outpatient. Recommend continuing anticoagulation despite this mild hematuria as CV/PE risk much greater than risk associated w hematuria. If starts passing clots, goes into clot retention, which is not a concern at this moment as I assessed the clear urine, he would then need discussion about holding anticoag. He can follow up w me as outpatient for the cysto in the next few weeks, once he is released from his rehab.
--- NOTE | 2017-12-23 15:59 | ASMTCMCOM ---
CM Note CM Note Notes: Pt not medically stable for d/c today, updated Kiki with [facility] and they can admit tomorrow if pt ready. CM to follow. Date Signed: 12/23/2017 03:57 PM Electronically Signed By:IMELDA Peter
[2017-12-23] MEDS ORDERED: WARFARIN SODIUM 3 MG TAB PO SCH (16:00)
[2017-12-23] MEDS ORDERED: IOPAMIDOL (ISOVUE-300) 100 ML BTL ONE (16:57)
--- NOTE | 2017-12-23 17:45 | HOSPPROG ---
Hospitalist Progress Note Assessment/Plan: DIAGNOSES: * postop day 9 from spine surgery; continued increase in mobility today with little pain * gross hematuria onset 12/22 several days after removal of Vale catheter * On anticoagulant for PE * Asymptomatic from the bleeding, bleeding has been improving nicely with no clots past and good bladder voiding * postoperative ileus which he has experienced in the past as well * Severe at onset but Improving nicely at this time, eating reasonably well * hypertension still with some mildly elevated systolic pressures * acute pulmonary embolism in postop setting - quite stable from this at present * Continues on IV heparin at this time * INR 2.2 after 1st 2 doses of 5 mg Coumadin, now 2.0 after no Coumadin on 3rd day * Likely needs lower dose * volume overload/edema, likely due to combination of resuscitation fluids, IV medicines, decreased nutrition, etc * Improved after some diuretic and with increased mobilization, though on CT scan today does have significant bilateral pleural effusions * Minimally symptomatic in terms of respiratory issues at this time * anemia, expected postsurgical blood loss anemia * Stable * hypotensive episode postop, resolved * acute renal insufficiency due to hypotensive episode, resolved * question of aspiration pneumonia, resolved after treatment with antibiotic which has been stopped PLANS: * Advanced to regular diet * Increase physical activity and walking distances as able * Continue IV heparin drip tonight and discontinue in the morning * Coumadin 3 mg today and likely 2 mg after that, will need ongoing monitoring daily for a few days * Will give further Lasix diuresis today with presence of significant bilateral pleural effusions * Should be stable for transfer to LTAC tomorrow 12/24 - only forseeable issue that could interfere with that is if for some reason while on anticoagulation here he develops uncontrolled bladder bleeding or bladder outlet obstruction from clot * Review of CT urogram scan results from today when that is available; ongoing outpatient urology assessment for cause of hematuria per Dr. Harvey's recommendations in her note of today SUBJECTIVE: Overall feeling better Ambulating much better in hallway Eating better and had a bowel movement today, still with some degree of abdominal distension but no nausea no pain Most notably he started having gross hematuria this afternoon without pain, no clots past so far and seems to be emptying his bladder well OBJECTIVE Vitals reviewed: Some mild intermittent hypertension otherwise stable without fever Exam: alert oriented skin warm dry color ok resps not labored lungs clear BSs heart regular abd soft remains distended but nontender, bowel sounds present limbs warm, less edema today with minimal pitting iv site ok Laboratory data: Heparin level therapeutic INR 1.9 this am but 2.2 this pm (has had 2 doses coumadin 5 mg past two days) Objective: Vital Signs Temp Pulse Resp BP Pulse Ox 36.9 C 62 15 142/81 H 93 12/23/17 15:47 12/23/17 15:47 12/23/17 15:47 12/23/17 15:47 12/23/17 15:47 Microbiology 12/13/17 08:53 Gram Stain - Final Other - Anaerobic Tube/Swab Laboratory Results 12/23/17 11:39 12/20/17 05:20 12/22/17 12/23/17 12/24/17 06:59 06:59 06:59 Intake Total 1684 750 100 Output Total 1650 2950 1300 Balance 34 -2200 -1200 PT 23.3 SEC (12.0-15.0) H 12/23/17 04:32 INR 2.06 (0.83-1.16) H 12/23/17 04:32 - Time Spent With Patient Time Spent with Patient: greater than 35 minutes Time Spent with Patient: Greater than 35 minutes spent on this patients care, greater than 50% of time spent counseling, educating, and coordinating care regarding the above mentioned plan. ICD10 Worksheet Patient Problems: Problems Problem Status Onset Degenerative lumbar spinal stenosis Acute Degenerative lumbar spinal stenosis Acute Lumbar canal stenosis Acute
[2017-12-23] MEDS ORDERED: FUROSEMIDE 20 MG/2 ML VIAL IVP ONE (18:02)
[2017-12-23] MEDS: amLODIPine BESYLATE 5 MG TAB PO SCH (21:10)
[2017-12-23] MEDS: ATORVASTATIN CALCIUM 10 MG TAB PO SCH (21:11)
[2017-12-23] MEDS: EZETIMIBE 10 MG TAB PO SCH (21:11)
[2017-12-23] MEDS: FINASTERIDE 5 MG TAB PO SCH (21:12)
[2017-12-23] MEDS: SERTRALINE HCL 100 MG TAB PO SCH (21:12)
[2017-12-23] MEDS: TAMSULOSIN HCL 0.4 MG CAP PO SCH (21:12)
[2017-12-23] MEDS: MAGNESIUM OXIDE 400 MG TAB PO SCH (21:12)
[2017-12-23] MEDS: TERAZOSIN HCL 5 MG CAP PO SCH (21:12)
[2017-12-24] MEDS: GABAPENTIN 300 MG CAP PO SCH ×3 (04:59→21:22)
[2017-12-24] MEDS: ACETAMINOPHEN 500 MG TAB PO SCH ×3 (05:00→21:26)
[2017-12-24 05:27] LABS: INR 2.01 (0.83-1.16); PROTIME(PATIENT) 22.8 SEC (12.0-15.0)
[2017-12-24] MEDS: HEPARIN/DEXTROSE 500 ML IV SCH (05:51)
--- NOTE | 2017-12-24 09:14 | PDCONSULT ---
Stamp Analyst Note: CT abd/pel Urogram images personally reviewed - no renal masses, simple cyst left kidney, no hydronephrois, no hydroureter, incomplete opacifiction both ureters likely 2/2 peristalsis, no apparent bladder mass, air in bladder from recent steen. Overall normal Urogram. Needs cyto as outpatient. Per nursing, he is urinating well without difficulty. Can follow w me as an outpatient. OK for DC from urology standpoint.
--- NOTE | 2017-12-24 09:17 | NEUSURGPN ---
Assessment/Plan: Assessment: 77 yo M POD #11 L1-S1 fusion with L2-4 TLIF with csf leak from previously placed screw Plan: neuro: No changes today PE: on heparin, appreciate help from Hospitalists. New hematuria this morning. Will defer to medicine for further work up Pneumonia: on Unasyn, appreciate help from Hospitalists ARF: resolved, likely from hypotension PT/OT scd/zac for dvt prophylaxis ileus: Ng tube out, slowly advancing diet JULIO removed post op x-rays look good to [facility] once cleared by medicine please call with neuro changes discussed with Dr Skinner Subjective: Denies any new pain, weakness, numbness or tingling Objective: AAOx3, PERRL, EOMI, no facial droop 5/5 except right DF 0/5, left PF 4/5 + light touch C/D/I Catheter Insertion Date: 12/13/17 - Physician Discussed Patient with : Caleb Neurosurgery Physical Exam - Vitals, I&O, Labs I and O 12/23/17 12/24/17 12/25/17 05:59 05:59 05:59 Intake Total 250 750 Output Total 2250 3975 200 Balance -2000 -3225 -200 Intake: Oral (ml) 250 750 Output: Urine (ml) 2250 3975 200 Catheter 1000 900 Toilet 350 500 Urinal 900 2575 200 Other: Intake Quantity Yes Sufficient Number of Voids Catheter 1 Incontinence 1 1 Toilet 1 Urinal 1 1 1 Number of Stools Toilet 1 1 Post Void Residual Scan Volume (ml) Incontinence 317 Toilet 200 Urinal 272 Microbiology 12/13/17 08:53 Gram Stain - Final Other - Anaerobic Tube/Swab Vital Signs Temp Pulse Resp BP Pulse Ox 37.1 C 67 16 128/75 H 93 12/24/17 08:00 12/24/17 08:00 12/24/17 08:00 12/24/17 08:00 12/24/17 08:00 Laboratory Results 12/23/17 11:39 12/20/17 05:20 ICD10 Worksheet Patient Problems: Problems Problem Status Onset Degenerative lumbar spinal stenosis Acute Degenerative lumbar spinal stenosis Acute Lumbar canal stenosis Acute
[2017-12-24] MEDS: POLYETHYLENE GLYCOL 3350 17 GM PKT PO SCH ×3 (09:27→22:42)
[2017-12-24] MEDS: SENNOSIDES/DOCUSATE SODIUM TAB PO SCH ×2 (09:27→21:26)
[2017-12-24] MEDS: FOLIC ACID 1 MG TAB PO SCH (09:27)
[2017-12-24] MEDS: PYRIDOXINE HCL 100 MG TAB PO SCH (09:27)
--- NOTE | 2017-12-24 12:40 | HOSPPROG ---
Hospitalist Progress Note Assessment/Plan: 77-year-old date 10 postop from Spine surgery. Overall doing well from a mobility standpoint. Postop course complicated by a ileus, hematuria and a pulmonary embolism. # postop day 10 from Spine surgery # postop ileus, BM 2 days ago feels bloated today but able to eat. * Work on bowel protocol prior to transfer # hematuria: Evaluation by Urology negative. Intermittent hematuria currently but no clots * Continue supportive care likely exacerbated by anticoagulation * Follow up with Urology as an outpatient for cystoscopy # acute pulmonary embolism, stable continue anticoagulation on Coumadin # hypertension, stable # volume overload and edema continue diuretic. # anemia, expected postsurgical blood loss stable # hypotensive postop, resolved # acute renal insufficiency postop due to hypotensive episode, resolved Subjective: Patient new to me and chart reviewed, overall doing well however feels bloated and needs to have a BM. Still having some hematuria. Objective: Vital Signs Temp Pulse Resp BP Pulse Ox 37.1 C 67 16 128/75 H 93 12/24/17 08:00 12/24/17 08:00 12/24/17 08:00 12/24/17 08:00 12/24/17 08:00 Microbiology 12/13/17 08:53 Gram Stain - Final Other - Anaerobic Tube/Swab Laboratory Results 12/23/17 11:39 12/20/17 05:20 12/23/17 12/24/17 12/25/17 05:59 05:59 05:59 Intake Total 250 750 Output Total 2250 3975 400 Balance -2000 -3225 -400 PT 22.8 SEC (12.0-15.0) H 12/24/17 04:59 INR 2.01 (0.83-1.16) H 12/24/17 04:59 - Physical Exam Constitutional: no apparent distress Eyes: PERRL, anicteric sclera Ears, Nose, Mouth, Throat: moist mucous membranes Cardiovascular: regular rate and rhythym Respiratory: no respiratory distress, reduced air movement (Basis) Genitourinary: No steen in urethra Skin: warm, normal color Neurologic: AAOx3 Psychiatric: interacting appropriately, not anxious ICD10 Worksheet Patient Problems: Problems Problem Status Onset Degenerative lumbar spinal stenosis Acute Degenerative lumbar spinal stenosis Acute Lumbar canal stenosis Acute
[2017-12-24] MEDS ORDERED: WARFARIN SODIUM 3 MG TAB PO ONE (16:00)
[2017-12-24] MEDS: SERTRALINE HCL 100 MG TAB PO SCH (21:22)
[2017-12-24] MEDS: FINASTERIDE 5 MG TAB PO SCH (21:22)
[2017-12-24] MEDS: ATORVASTATIN CALCIUM 10 MG TAB PO SCH (21:22)
[2017-12-24] MEDS: TAMSULOSIN HCL 0.4 MG CAP PO SCH (21:22)
[2017-12-24] MEDS: amLODIPine BESYLATE 5 MG TAB PO SCH (21:22)
[2017-12-24] MEDS: TERAZOSIN HCL 5 MG CAP PO SCH (21:22)
[2017-12-24] MEDS: MAGNESIUM OXIDE 400 MG TAB PO SCH (21:26)
[2017-12-24] MEDS: EZETIMIBE 10 MG TAB PO SCH (21:26)
[2017-12-25 04:59] LABS: INR 2.18 (0.83-1.16); PROTIME(PATIENT) 24.3 SEC (12.0-15.0)
[2017-12-25] MEDS: ACETAMINOPHEN 500 MG TAB PO SCH ×2 (05:12→13:05)
[2017-12-25] MEDS: GABAPENTIN 300 MG CAP PO SCH ×2 (05:15→13:04)
[2017-12-25] MEDS: METHOCARBAMOL 750 MG TAB PO PRN ×2 (09:31→13:06)
[2017-12-25] MEDS: PYRIDOXINE HCL 100 MG TAB PO SCH (09:31)
[2017-12-25] MEDS: FOLIC ACID 1 MG TAB PO SCH (09:31)
[2017-12-25] MEDS: SENNOSIDES/DOCUSATE SODIUM TAB PO SCH (09:32)
[2017-12-25] MEDS: POLYETHYLENE GLYCOL 3350 17 GM PKT PO SCH (09:35)
--- NOTE | 2017-12-25 09:45 | HOSPPROG ---
Hospitalist Progress Note Assessment/Plan: 77-year-old date 10 postop from Spine surgery. Overall doing well from a mobility standpoint. Postop course complicated by a ileus, hematuria and a pulmonary embolism. # postop day 11 from Spine surgery # postop ileus, BM yesterday feels bloated today but able to eat. * Work on bowel protocol prior to transfer # hematuria: Evaluation by Urology negative. Intermittent hematuria currently but no clots * Continue supportive care likely exacerbated by anticoagulation * Follow up with Urology as an outpatient for cystoscopy # acute pulmonary embolism, stable continue anticoagulation on Coumadin # hypertension, stable # volume overload and edema continue diuretic. # anemia, expected postsurgical blood loss stable # hypotensive postop, resolved # acute renal insufficiency postop due to hypotensive episode, resolved Subjective: feeling good Objective: Vital Signs Temp Pulse Resp BP Pulse Ox 36.8 C 70 16 155/84 H 94 12/25/17 08:32 12/25/17 08:32 12/25/17 08:32 12/25/17 08:32 12/25/17 08:32 Microbiology 12/22/17 22:09 Urine Culture - Final Urine,Clean Catch Laboratory Results 12/25/17 04:40 12/20/17 05:20 12/24/17 12/25/17 12/26/17 05:59 05:59 05:59 Intake Total 750 350 500 Output Total 3975 1350 150 Balance -3225 -1000 350 PT 24.3 SEC (12.0-15.0) H 12/25/17 04:40 INR 2.18 (0.83-1.16) H 12/25/17 04:40 - Physical Exam Constitutional: no apparent distress Cardiovascular: regular rate and rhythym Respiratory: no respiratory distress ICD10 Worksheet Patient Problems: Problems Problem Status Onset Lumbar canal stenosis Acute Degenerative lumbar spinal stenosis Acute Degenerative lumbar spinal stenosis Acute
--- NOTE | 2017-12-25 09:50 | PDIAF ---
- Diagnosis Diagnosis: spinal surgery, Pulmonary embolis, Code Status: Full Code - Medication Management Discharge Medications: Medications to Continue on Transfer Alendronate Sodium [Fosamax 70 MG (*)] 70 mg PO TH@0700 11/23/17 [Last Taken ] Calcium Carb W/Vit D [Calcium Carb W/Vit D 500/200 (*)] 3 each PO DAILY [Last Taken 12/06/17] Cholecalciferol Vit D3 [Vitamin D3 2000 units tab (OTC)] 4,000 units PO HS 11/23 [Last Taken 12/06/17] Cyanocobalamin [Vitamin B12 (*)] 1,000 mcg PO BID 11/23/17 [Last Taken 12/06/17] Ezetimibe/Simvastatin [Vytorin 10-20 mg Tablet] 1 each PO HS 11/23/17 [Last Taken 12/12/17 17:30] Finasteride [Proscar 5 MG (*)] 5 mg PO HS 11/23/17 [Last Taken 12/12/17 21:30] Folic Acid [Folic Acid 1 MG (*)] 1 mg PO DAILY 11/23/17 [Last Taken 12/06/17] Magnesium Oxide [Magnesium Oxide 400 mg (*)] 400 mg PO HS 11/23/17 [Last Taken 12/06/17] Pyridoxine HCl [Vitamin B-6 100 mg (*)] 100 mg PO DAILY 11/23/17 [Last Taken ] Tamsulosin HCl [Flomax 0.4 MG (*)] 0.4 mg PO HS 11/23/17 [Last Taken 12/12/17 21 :30] Terazosin HCl [Hytrin 5 MG (*)] 5 mg PO HS 11/23/17 [Last Taken 12/12/17 17:30] amLODIPine BESYLATE [Norvasc 5 mg (*)] 5 mg PO HS 11/23/17 [Last Taken 12/12/17 17:30] Multivitamins [Multivitamin (*)] 1 each PO HS 11/25/17 [Last Taken 12/06/17] Sertraline HCl [Zoloft 100mg (*)] 100 mg PO HS 11/25/17 [Last Taken 12/12/17 17: 30] Acetaminophen [Tylenol ES 500 mg (*)] 1,000 mg PO Q8HRS tab 12/25/17 [Last Taken Unknown] Gabapentin [Neurontin 300 MG (*)] 900 mg PO Q8HRS cap 12/25/17 [Last Taken Unknown] Methocarbamol [Robaxin 750 mg (*)] 750 mg PO QID PRN tab 12/25/17 [Last Taken Unknown] Polyethylene Glycol 3350 [Miralax 17 gm (*)] 17 gm PO TID pkt 12/25/17 [Last Taken Unknown] Sennosides/Docusate Sodium [Senokot-S] 1 - 2 tab PO BID tab 12/25/17 [Last Taken Unknown] Warfarin Sodium 3 mg PO DAILY #1 tablet 12/25/17 [Last Taken Unknown] Discharge Medications: Refer to the Discharge Home Medication list for PRN reason. - Orders Services needed: Registered Nurse, Certified Welder Apprentice Arc, Master Water System Operator , Physical Therapy, Occupational Therapy, Speech Language Pathologist Diet Recommendation: no restrictions on diet Diet Texture: Regular Texture Diet - Labs/Radiology PT/INR Date: 12/26/17 (daily til on stable dose) - Follow Up Care Current Providers and Referrals: LAZARA ARREOLA [Primary Care Provider] -
--- NOTE | 2017-12-25 10:20 | NEUSURGPN ---
Assessment/Plan: Assessment: 77 yo M POD #12 L1-S1 fusion with L2-4 TLIF with csf leak from previously placed screw Plan: neuro: No changes today PE: on heparin, appreciate help from Hospitalists. New hematuria this morning. Will defer to medicine for further work up Pneumonia: on Unasyn, appreciate help from Hospitalists ARF: resolved, likely from hypotension PT/OT scd/zac for dvt prophylaxis ileus: Ng tube out, slowly advancing diet JULIO removed post op x-rays look good to [facility] today please call with neuro changes discussed with Dr Skinner Subjective: Denies any new pain, weakness, numbness or tingling Objective: AAOx3, 5/5 except right DF 0/5, left PF 4/5 + light touch C/D/I Catheter Insertion Date: 12/13/17 - Physician Discussed Patient with : Caleb Neurosurgery Physical Exam - Vitals, I&O, Labs I and O 12/24/17 12/25/17 12/26/17 05:59 05:59 05:59 Intake Total 750 350 500 Output Total 3975 1350 150 Balance -3225 -1000 350 Intake: Oral (ml) 750 350 500 Output: Urine (ml) 3975 1350 150 Catheter 900 Toilet 500 Urinal 2575 1350 150 Other: Intake Quantity Yes Sufficient Number of Voids Catheter 1 Incontinence 1 1 Toilet 1 Urinal 1 1 1 Number of Stools Toilet 1 1 Post Void Residual Scan Volume (ml) Incontinence 317 Urinal 272 199 Microbiology 12/22/17 22:09 Urine Culture - Final Urine,Clean Catch Vital Signs Temp Pulse Resp BP Pulse Ox 36.8 C 70 16 155/84 H 94 12/25/17 08:32 12/25/17 08:32 12/25/17 08:32 12/25/17 08:32 12/25/17 08:32 Laboratory Results 12/25/17 04:40 12/20/17 05:20 ICD10 Worksheet Patient Problems: Problems Problem Status Onset Degenerative lumbar spinal stenosis Acute Degenerative lumbar spinal stenosis Acute Lumbar canal stenosis Acute
[2017-12-25 11:03] VITALS: BP 121/60
--- NOTE | 2017-12-25 12:57 | ASMTLACE ---
[place] Length of stay for Answers: 7-13 days current admission Acuity / Level of Answers: Yes Care: Did the patient have an inpatient admission? Comorbidities - select Answers: Cerebrovascular disease all that apply (CVA, TIA, aneurysms, vasc ular dementia) Coronary Artery Disease Other Notes: HTN; Hx of DVT & PE # of Emergency department Answers: 0 visits in the last 6 months Social determinants Answers: Mental health diagnosis (anxiety, depression, pers onality disorders, etc.) Score: 15 Date Signed: 12/25/2017 12:57 PM Electronically Signed By:Jessie Rendon LCSW
--- NOTE | 2017-12-25 13:02 | ASDISCHSUM ---
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, DJD Placement Information Referral Type:*Custodial/SNF Referral ID:[id number] Provider Name: Address 1: Phone Number: Address 2: Fax Number: City: Selection Factors: State: Referral Type:[facility] Referral ID:[id number] Provider Name: Address 1: Phone Number: Address 2: Fax Number: City: Selection Factors: State: Referral Type:[facility] Referral ID:[id number] Provider Name:[facility] Address 1:[address] Address 2: City:[place] Selection Factors: State:[place] Patient Contact Information Contact Name:MELLISA Relationship: Address:[address] [place] [address] City:[facility] Phone: [facility]/Zip Code:[place] [address] Email: Financial Information Financial Class:Medicare Primary Plan Desc:MEDICARE INPATIENT Primary Plan Number:[id number] Secondary Plan Desc:[facility] Secondary Plan Number:[id number] Assessment Information LACE LACE Length of stay for Answers: 7-13 days current admission Acuity / Level of Answers: Yes Care: Did the patient have an inpatient admission? Comorbidities - select Answers: Cerebrovascular disease all that apply (CVA, TIA, aneurysms, vasc ular dementia) Coronary Artery Disease Other Notes: HTN; Hx of DVT & PE # of Emergency department Answers: 0 visits in the last 6 months Social determinants Answers: Mental health diagnosis (anxiety, depression, pers onality disorders, etc.) Score: 15 Date Signed: 12/25/2017 12:57 PM Electronically Signed By:Jessie Rendon LCSW [facility] CM Progress Note CM Note CM Note Notes: S/P Fusion, TLIF - Patient's needs remain unclear at this time, await therapy input on . CM will continue to follow. Plan: TBD Date Signed: 12/14/2017 04:12 PM Electronically Signed By:Kourtney Kovacs RN [facility] CM Progress Note CM Note CM Note Notes: Patient is POD #2 L1-S2 fusion and L2-4 TLIF w CSF leak. He also has a post-operative ileus, which required NG tube placement today. I spoke with patients and son today about SNF. They agree with this plan. They're not sure on a facility, so we discussed options. I gave them a Senior Blue Book and mentioned a few facilities in [place], as well. They live in [place] but are not interested in any of the SNF in [place]. Referrals sent to [facility], [facility], [facility], [facility], [facility], and [facility]. Case Management will follow. Date Signed: 12/15/2017 01:43 PM Electronically Signed By:Lamar Hernandez RN [facility] CM Progress Note CM Note CM Note Notes: Family requests referral to [facility] rehab, sent in [employer]. Date Signed: 12/16/2017 12:38 PM Electronically Signed By:IMELDA Peter BC CM Progress Note CM Note CM Note Notes: Spoke with Inga from [facility] and sent updated notes per her request. D/C date unknown at this time. Pt has an NGT and JULIO drain. CM will continue to follow. D/C Plan: [facility] Date Signed: 12/17/2017 03:47 PM Electronically Signed By:IMELDA Hawthorne [facility] CM Progress Note CM Note CM Note Notes: Updated patient info sent to [facility]. Date Signed: 12/19/2017 05:27 PM Electronically Signed By:Jessie Rendon LCSW [facility] CM Progress Note CM Note CM Note Notes: Pt discharge likely at least 3 more days to [facility]. [facility] Plan[facility] Date Signed: 12/20/2017 05:21 PM Electronically Signed By:Christal Ramirez [facility] CM Progress Note CM Note CM Note Notes: July with [facility] reports they will admit pt for a few days to LTAC to monitor, pt has to transport by stretcher when admitting to LTAC. July was going to call pt/ to explain the decision to admit to LTAC. Updated pt/ if medically stable pt will d/c tomorrow. Date Signed: 12/22/2017 04:10 PM Electronically Signed By:IMELDA Peter [facility] NICOLE Progress Note CM Note CM Note Notes: Pt not medically stable for d/c today, updated Kiki with [facility] and they can admit tomorrow if pt ready. CM to follow. Date Signed: 12/23/2017 03:57 PM Electronically Signed By:IMELDA Peter Case Management Discharge Plan Note Case Management Discharge Discharge Order Complete? Answers: Yes Patient to Obtain Answers: Other Notes: No [place] LT[facility] Medications Transportation Arranged Answers: [facility] Stretcher Transport will Pick (Date 12/25/2017 02:00 PM & Time) Case Management Transport Answers: Yes Form Complete Faxed Final Orders Answers: Yes Notes: No [place] [facility] Discharge Comments Notes: Patient has been discharged to No [place] LTAC, [facility] to transport Date Signed: 12/25/2017 01:02 PM Electronically Signed By:Jessie Rendon LCSW Intervention Information Intervention Type:*IM-Signed Date of Service:12/23/2017 03:17 PM Patient Type:Inpatient Staff Member:Ruma Riggins Hours: Discipline: Severity: Comment:
--- NOTE | 2017-12-25 13:02 | ASMTDCNOTE ---
Case Management Discharge Discharge Order Complete? Answers: Yes Patient to Obtain Answers: Other Notes: No [place] LTAC Medications Transportation Arranged Answers: [facility] Stretcher Transport will Pick (Date 12/25/2017 02:00 PM & Time) Case Management Transport Answers: Yes Form Complete Faxed Final Orders Answers: Yes Notes: No [place] LT[facility] Discharge Comments Notes: Patient has been discharged to No [place] LTAC, [facility] to transport Date Signed: 12/25/2017 01:02 PM Electronically Signed By:Jessie Rendon LCSW
== END 2017-12-25 14:20 | DRG 453 ==
LOC: F3N 05:32
PROVIDERS: ADMIT Neurological Surgery; ATTEND Neurological Surgery
PROC: 0ST20ZZ Resection of Lumbar Vertebral Disc, Open Approach (ICD-10-PCS; principal; 2017-12-13 07:15)
PROC: 00NY0ZZ Release Lumbar Spinal Cord, Open Approach (ICD-10-PCS; principal; 2017-12-13 07:15)
PROC: 0SG10AJ Fusion of 2 or more Lumbar Vertebral Joints with Interbody Fusion Device, Posterior Approach, Anterior Column, Open Approach (ICD-10-PCS; principal; 2017-12-13 07:15)
PROC: 0SP00AZ Removal of Interbody Fusion Device from Lumbar Vertebral Joint, Open Approach (ICD-10-PCS; principal; 2017-12-13 07:15)
PROC: 8E0WXBZ Computer Assisted Procedure of Trunk Region (ICD-10-PCS; principal; 2017-12-13 07:15)
PROC: 0SG1071 Fusion of 2 or more Lumbar Vertebral Joints with Autologous Tissue Substitute, Posterior Approach, Posterior Column, Open Approach (ICD-10-PCS; principal; 2017-12-13 07:15)
PROC: 4A1004G Monitoring of Central Nervous Electrical Activity, Intraoperative, Open Approach (ICD-10-PCS; principal; 2017-12-13 07:15)
DX: M48.07 Spinal stenosis, lumbosacral region (principal); I26.99 Other pulmonary embolism without acute cor pulmonale; J69.0 Pneumonitis due to inhalation of food and vomit; M96.0 Pseudarthrosis after fusion or arthrodesis; D62 Acute posthemorrhagic anemia; K91.89 Other postprocedural complications and disorders of digestive system; G96.11 Dural tear; T84.296A Other mechanical complication of internal fixation device of vertebrae, initial encounter; R31.0 Gross hematuria; M48.062 Spinal stenosis, lumbar region with neurogenic claudication; M51.36 Other intervertebral disc degeneration, lumbar region; M51.16 Intervertebral disc disorders with radiculopathy, lumbar region; N40.0 Benign prostatic hyperplasia without lower urinary tract symptoms; I25.10 Atherosclerotic heart disease of native coronary artery without angina pectoris; Z86.718 Personal history of other venous thrombosis and embolism; Z86.711 Personal history of pulmonary embolism; Z95.5 Presence of coronary angioplasty implant and graft
CPT/HCPCS: 85520-90; 97110-GP; 97116-GP; 97162-GP; 97166-GO; 97530-GO; 97530-GP; 97535-GO; C1713; C1762; G8978-GP-CM; G8979-GP-CK; G8987-GO-CL; G8988-GO-CJ; J0171; J0295; J0330; J0461; J0690; J1100; J1170; J1644; J1650; J1940; J2274; J2405; J2550; J2704; J3010; J7060; P9016; Q9967

== ENCOUNTER 2018-07-03 05:17 | Day surgery (SDC) | payer OTHER ==
[2018-07-03] MEDS ORDERED: ACETAMINOPHEN 500 MG TAB PO ONE (05:52)
[2018-07-03] MEDS ORDERED: ceFAZolin 2 GM/DEXTROSE 100 ML IV ONE (05:52)
[2018-07-03] MEDS ORDERED: LR 1,000 ML IV ONE (05:52)
--- NOTE | 2018-07-03 06:17 | PDHPUP ---
History & Physical Update H&P update statement: This history and physical update is based on an assessment of the patient which was completed after admission or registration (within 24 hours), but prior to the surgery/procedure. H&P update: H&P reviewed & patient examined, no change in patient's condition since H&P completed
[2018-07-03] MEDS ORDERED: THROMBIN (BOVINE) 5,000 UNIT VIAL TP ONE (06:27)
[2018-07-03] MEDS ORDERED: CHLORHEXIDINE GLUC HIBICLENS 118 ML BTL TP ONE (06:27)
[2018-07-03] MEDS ORDERED: IOPAMIDOL (ISOVUE-M 300) 15 ML VIAL ONE (06:28)
[2018-07-03] MEDS ORDERED: EPINEPHrine 1 MG/ML INJ ONE (06:28)
[2018-07-03] MEDS ORDERED: BACITRACIN 50,000 UNITS/10 ML SYR IRR ONE (06:28)
[2018-07-03] MEDS: BUPIVACAINE 0.25% 30 ML SDV ONE ×2 (07:00→09:06)
[2018-07-03] MEDS ORDERED: fentaNYL 100 MCG/2 ML INJ ONE (07:03)
[2018-07-03] MEDS ORDERED: PROPOFOL/EMULSION 500 MG/50 ML BOTTLE IV ONE (07:03)
[2018-07-03] MEDS ORDERED: BUPIVACAINE 0.25% 30 ML SDV ONE (07:23)
[2018-07-03 07:51] LABS: INR 1.15 (0.83-1.16); PROTIME(PATIENT) 14.2 SEC (12.0-15.0)
[2018-07-03] MEDS ORDERED: ONDANSETRON 4 MG/2 ML VIAL ONE (08:14)
[2018-07-03] MEDS ORDERED: LIDOCAINE 2% 5 ML SDV ONE (08:14)
[2018-07-03] MEDS ORDERED: SUCCINYLCHOLINE CHLORIDE 200 MG/10 ML SYR IVP ONE (08:14)
[2018-07-03] MEDS ORDERED: SUGAMMADEX SODIUM 200 MG/2 ML VIAL IVP ONE (08:14)
[2018-07-03] MEDS ORDERED: ROCURONIUM 50 MG/5 ML VIAL ONE (08:14)
[2018-07-03] MEDS ORDERED: GLYCOPYRROLATE 0.2 MG/1 ML VIAL ONE (08:14)
[2018-07-03] MEDS ORDERED: fentaNYL 100 MCG/2 ML INJ IVP PRN (08:19)
[2018-07-03] MEDS ORDERED: DEXAMETHASONE 4 MG/ML VIAL IVP PRN (08:19)
[2018-07-03] MEDS ORDERED: ONDANSETRON 4 MG/2 ML VIAL IVP PRN ×2 (08:19→10:14)
[2018-07-03] MEDS ORDERED: LR 500 ML IV PRN (08:19)
[2018-07-03] MEDS ORDERED: NALOXONE HCL 0.4 MG/ML INJ IVP PRN (08:19)
[2018-07-03] MEDS ORDERED: ALBUTEROL 3 ML DEYVIAL IH PRN (08:19)
--- NOTE | 2018-07-03 08:19 | PDANEPAE ---
ANE Past Medical History - Cardiovascular History Hx Hypertension: Yes Hx Arrhythmias: No Hx Chest Pain: No Hx Coronary Artery / Peripheral Vascular Disease: Yes Hx CHF / Valvular Disease: No Hx Palpitations: No Cardiovascular History Comment: CAD 3 stents placed 2002,recheck 2007 - Pulmonary History Hx COPD: No Hx Asthma/Reactive Airway Disease: No Hx Recent Upper Respiratory Infection: No Hx Oxygen in Use at Home: No Hx Sleep Apnea: No Sleep Apnea Screening Result - Last Documented: Positive - Neurologic History Hx Cerebrovascular Accident: No Hx Seizures: No Hx Dementia: No - Endocrine History Hx Diabetes: No - Renal History Hx Renal Disorders: Yes Renal History Comment: INCONT. NOCTURIA - Liver History Hx Hepatic Disorders: No - Neurological & Psychiatric Hx Hx Neurological and Psychiatric Disorders: Yes Neurological / Psychiatric History Comment: depression - Cancer History Hx Cancer: No - Congenital Disorder History Hx Congenital Disorders: No Congenital History Comment: heart disease. strokes - GI History Hx Gastrointestinal Disorders: No - Other Health History Other Health History: Hx DVT'S and PE's. MISSING TOOTH - Chronic Pain History Chronic Pain: Yes (LOWER BACK) - Surgical History Prior Surgeries: 12/13/17 LUMBAR FUSION. 2016 lumbar fusion at [facility]. 2015 discectomy at [facility]. 2014 laminectomy post fusion [facility] ANE Review of Systems Review of Systems: - Exercise capacity METS (RN): 4 METS ANE Patient History - Allergies Allergies/Adverse Reactions: oxycodone Allergy (Verified 11/29/17 11:35) Other-Enter Comments - Home Medications Home Medications: Ezetimibe/Simvastatin [Vytorin 10-20 mg Tablet] 1 each PO DAILY18 11/23/17 [ Last Taken 07/02/18] Finasteride [Proscar 5 MG (*)] 5 mg PO HS 11/23/17 [Last Taken 07/02/18] Tamsulosin HCl [Flomax 0.4 MG (*)] 0.4 mg PO HS 11/23/17 [Last Taken 07/02/18] Terazosin HCl [Hytrin 5 MG (*)] 5 mg PO DAILY18 11/23/17 [Last Taken 07/02/18] amLODIPine BESYLATE [Norvasc 5 mg (*)] 5 mg PO DAILY18 11/23/17 [Last Taken ] Multivitamins [Multivitamin (*)] 1 each PO BID 11/25/17 [Last Taken 06/25/18 08: 00] Sertraline HCl [Zoloft 100mg (*)] 100 mg PO DAILY18 11/25/17 [Last Taken ] Aspirin [Aspirin 81mg (*)] 81 mg PO HS 06/26/18 [Last Taken 06/25/18 08:00] Baclofen 5 mg PO BID 06/26/18 [Last Taken 07/02/18] Calcium Carbonate [Oyster Shell Calcium 500 mg (*)] 1,000 mg PO DAILY 06/26/18 [ Last Taken 06/25/18 08:00] Docusate Sodium [Colace 100 MG (*)] 100 mg PO BIDMEAL 06/26/18 [Last Taken 07/01] Enoxaparin [Lovenox 80 MG (*)] 80 mg SQ BID 06/26/18 [Last Taken 07/02/18] Famotidine [Pepcid 20 MG (*)] 20 mg PO BID 06/26/18 [Last Taken 07/02/18] Folic Acid [Folic Acid 1 MG (*)] 1 mg PO DAILY 06/26/18 [Last Taken 06/25/18 08: 00] Furosemide [Lasix 40 MG (*)] 40 mg PO Q2D 06/26/18 [Last Taken 07/01/18] Gabapentin [Neurontin 300 MG (*)] 300 mg PO BID 06/26/18 [Last Taken 07/02/18] Herbals/Supplements -Info Only 1 ea PO DAILY 06/26/18 [Last Taken 06/25/18 08:00 ] Magnesium Oxide [Magnesium Oxide 400 mg (*)] 400 mg PO DAILY18 06/26/18 [Last Taken 06/25/18 08:00] [place]-3 Fatty Acids [Fish Oil 1000 mg (*)] 1,000 mg PO BIDMEAL 06/26/18 [Last Taken 06/25/18 08:00] Polyethylene Glycol 3350 [Miralax 17 gm (*)] 17 gm PO DAILY 06/26/18 [Last Taken 06/29/18] Psyllium Husk (with Sugar) [Metamucil Packet] 1 each PO HS 06/26/18 [Last Taken 06/29/18] Vitamin B Complex [Vitamin B Complex (OTC)] 1 each PO HS 06/26/18 [Last Taken 08:00] Warfarin Sodium [Coumadin 4MG (*)] 4 mg PO SUTUTHSA@06/26/18 [Last Taken 03/06 21:00] Warfarin Sodium [Coumadin 5MG (*)] 5 mg PO MWF@06/26/18 [Last Taken 06/27/18 21:00] traMADol [Ultram 50 mg (*)] 50 mg PO BID 06/26/18 [Last Taken 07/02/18] - NPO status NPO Since - Liquids (Date): 07/03/18 NPO Since - Liquids (Time): 05:00 NPO Since - Solids (Date): 07/02/18 NPO Since - Solids (Time): 19:00 - Smoking Hx Smoking Status: Former smoker - Family Anes Hx Family Hx Anesthesia Complications: none ANE Labs/Vital Signs - Vital Signs Height: 187.96 cm Weight: 88.451 kg ANE Physical Exam - Airway Neck exam: FROM Mallampati Score: Class 1 Mouth exam: poor dentition - Pulmonary Pulmonary: no respiratory distress, no rales or rhonchi, clear to auscultation - Cardiovascular Cardiovascular: regular rate and rhythym, bradycardia - ASA Status ASA Status: III ANE Anesthesia Plan Anesthesia Plan: general endotracheal anesthesia (pacing pads applied on anterior chest before positioning prone)
[2018-07-03] MEDS ORDERED: PROPOFOL 200 MG/20 ML VIAL ONE (08:21)
[2018-07-03] MEDS ORDERED: SODIUM BICARBONATE 50 MEQ/50 ML SYR ONE (08:34)
[2018-07-03] MEDS ORDERED: BACLOFEN 10 MG TAB PO SCH (09:00)
[2018-07-03] MEDS ORDERED: FAMOTIDINE 20 MG TAB PO SCH (09:00)
[2018-07-03] MEDS ORDERED: GABAPENTIN 300 MG CAP PO SCH (09:00)
[2018-07-03] MEDS ORDERED: FUROSEMIDE 40 MG TAB PO SCH (09:00)
[2018-07-03] MEDS ORDERED: FOLIC ACID 1 MG TAB PO SCH (09:00)
--- NOTE | 2018-07-03 09:01 | SOAPPROG ---
SOAP Progress Note Assessment/Plan: Assessment: 77 yo M sp L1 kyphoplasty Plan: stable to PACU hopefully dc home in 3 hours (12 pm) please call with neuro changes 07/03/18 08:59 Subjective: + back pain, no leg pain. Objective: PT 14.2 SEC (12.0-15.0) 07/03/18 06:31 INR 1.15 (0.83-1.16) 07/03/18 06:31 somnolent PERRL, no facial droop DUANE x 4 + light touch ICD10 Worksheet Patient Problems: Problems Problem Status Onset Degenerative lumbar spinal stenosis Acute Degenerative lumbar spinal stenosis Acute Lumbar canal stenosis Acute
[2018-07-03] MEDS ORDERED: ONDANSETRON DISINTEGRATING 4 MG TAB PO PRN (10:14)
[2018-07-03] MEDS ORDERED: traMADol 50 MG TAB ONE (10:23)
[2018-07-03] MEDS ORDERED: traMADol 50 MG TAB PO ONE (10:30)
--- NOTE | 2018-07-03 10:45 | POSTANESTH ---
Post Anesthetic Evaluation Cardiovascular Status: Normal, Stable, Similar to Pre-Op Cond Respiratory Status: Normal, Stable, Similar to Pre-op Cond. Level of Consciousness/Mental Status: Can Participate in Eval, Alert and Oriented Pain Control: Adequate, Prn Tx Ordered Nausea/Vomiting Control: Adequate, Prn Tx Ordered Complications Possibly Related to Anesthesia: None Noted
--- NOTE | 2018-07-03 11:08 | GOP ---
[f rep st] OPERATIVE REPORT DATE OF OPERATION: 07/03/2018 SURGEON: Primitivo Ellis MD NEUROSURGEON: Primitivo Ellis MD CARD HAND: CAMELIA Hodgson ANESTHESIA: General endotracheal. PREOPERATIVE DIAGNOSIS: L1 osteoporotic vertebral compression fracture, status post multilevel L1 to S1 decompression stabilization with instrumentation. Intractable back pain. Failed conservative ca re. POSTOPERATIVE DIAGNOSIS: L1 osteoporotic vertebral compression fracture, status post multilevel L1 t o S1 decompression stabilization with instrumentation. Intractable back pain. Failed conservative c are. PROCEDURE PERFORMED: Minimally invasive L1 transpedicular kyphoplasty procedure with use of intraope rative computer volumetric stereotactic navigation and intraoperative neurophysiologic testing. FINDINGS: ESTIMATED BLOOD LOSS: Trace. INDICATIONS: The patient is a 77-year-old man who underwent a multilevel L1 to S1 decompression and fusion with stabilization and instrumentation who subsequently suffered an L1 fracture with loosened hardware and he presents now for a kyphoplasty procedure after having ongoing pain with bracing and o bvious loosening of the screws on CT. DESCRIPTION OF PROCEDURE: After informed consent was obtained, the patient was taken to the operatin g room and placed in the prone position on the Jered table. The thoracolumbosacral areas were prep ped and draped in a sterile fashion. After fluoroscopic localization of the correct levels, the subc utaneous and intramuscular tissues were infiltrated with local anesthesia. A small midline linear incision was then created a couple of levels above the area of interest. This was carried down to the fascial layer, which was incised using monopolar electrocautery and carried to the subcostal plane along the spinous process. The navigational clamp was connected, and followin g this, the O-arm neuronavigational system brought in and 3-D reconstructed images of the chest obtai mickey. Using computer volumetric stereotactic navigation, the L1 vertebral body was cannulated bilaterally g oing around the pedicles with screws in them. After verifying good position of the cannulas using bi planar fluoroscopy, the drill was inserted, the balloons were placed and tightened up to about 350 ps i each under direct fluoroscopic image guidance. The balloons were then removed and an appropriate a mount of cement was carefully injected bilaterally and following this, the cannulas were removed in t he standard fashion and all wounds were copiously irrigated with antibiotic irrigation. The frame wa s removed and all wounds were closed using interrupted Vicryl sutures, followed by Steri-Strips on th e skin. COMPLICATIONS: None. DISPOSITION: The patient is currently in the process of being repositioned for extubation. /[id number]/MODL
[2018-07-03 15:12] VITALS: BP 157/76
[2018-07-03] MEDS ORDERED: DOCUSATE SODIUM 100 MG CAP PO SCH (18:00)
[2018-07-03] MEDS ORDERED: NON-FORMULARY NEW DRUG (Ezetimibe/Simvastatin [Vytorin 10-20 Mg Tablet] 1 EACH) PO SCH (18:00)
[2018-07-03] MEDS ORDERED: ATORVASTATIN CALCIUM 10 MG TAB PO SCH (18:00)
[2018-07-03] MEDS ORDERED: SERTRALINE HCL 100 MG TAB PO SCH (18:00)
[2018-07-03] MEDS ORDERED: amLODIPine BESYLATE 5 MG TAB PO SCH (18:00)
[2018-07-03] MEDS ORDERED: TERAZOSIN HCL 5 MG CAP PO SCH (18:00)
[2018-07-03] MEDS ORDERED: EZETIMIBE 10 MG TAB PO SCH (18:00)
[2018-07-03] MEDS ORDERED: TAMSULOSIN HCL 0.4 MG CAP PO SCH (21:00)
[2018-07-03] MEDS ORDERED: FINASTERIDE 5 MG TAB PO SCH (21:00)
[2018-07-03] MEDS ORDERED: PSYLLIUM METAMUCIL 1 PKT PO SCH (21:00)
== END 2018-07-03 14:59 | disposition home or self-care (01) ==
LOC: FSGY 05:17 → UNDOADMOB 05:17 → F3N 05:17 → EDSTATUS 10:00 → FSGY 14:59 → UNDODISOB 14:59
PROVIDERS: ATTEND Neurological Surgery
PROC: 0QU03JZ Supplement Lumbar Vertebra with Synthetic Substitute, Percutaneous Approach (ICD-10-PCS; principal; 2018-07-03 07:15)
DX: S32.010A Wedge compression fracture of first lumbar vertebra, initial encounter for closed fracture (principal); M62.830 Muscle spasm of back; I10 Essential (primary) hypertension; E78.5 Hyperlipidemia, unspecified; X58.XXXA Exposure to other specified factors, initial encounter; Y99.9 Unspecified external cause status; Z98.1 Arthrodesis status; Z98.890 Other specified postprocedural states; Z95.5 Presence of coronary angioplasty implant and graft; Z87.891 Personal history of nicotine dependence
CPT/HCPCS: 22514; 76000; C1894; C1713; J0171; J0330; J0690; J2405; J2704; J3010; Q9967